=== PATIENT | female | born 1955 | race Caucasian/White ===

== ENCOUNTER 2016-06-19 10:01 | Outpatient (CLI) ==
[2016-02-05 18:12] VITALS: BMI 23.3
[2016-06-19 10:26] LABS: BASOPHILS # (AUTO) 0.1 K/uL (0-0.2); BASOPHILS % (AUTO) 0.5 % (0.0-3.0); EOSINOPHILS # (AUTO) 0.3 K/ul (0.0-0.7); EOSINOPHILS % (AUTO) 3.1 % (0.0-7.0); HEMATOCRIT 36.7 % (37.0-47.0); HEMOGLOBIN 11.5 g/dl (12.0-16.0); IMMATURE GRANULOCYTE % (AUTO) 0.7 % (0.0-5.0); LYMPHOCYTES # (AUTO) 2.8 K/uL (0.60-3.4); MEAN CORPUSCULAR HEMOGLOBIN 25.5 pg (27.0-31.0); MEAN CORPUSCULAR HGB CONC 31.3 (31.8-35.4); MEAN CORPUSCULAR VOLUME 81.4 fl (81.0-99.0); MONOCYTES # (AUTO) 0.9 K/uL (0.4-2.0); MONOCYTES % (AUTO) 7.9 (0-10); NEUTROPHILS # (AUTO) 6.8 K/ul (2.0-6.9); NEUTROPHILS % (AUTO) 61.8; PLATELET COUNT 254 10^3/uL (140-440); RED BLOOD COUNT 4.51 10^6/ul (4.20-5.40); WHITE BLOOD COUNT 10.94 K/ul (4.6-10.2)
[2016-06-19 10:56] LABS: ALBUMIN 3.7 g/dL (3.4-5.0); ALBUMIN/GLOBULIN RATIO 0.93; ANION GAP 13.6; BILIRUBIN,TOTAL 0.16 mg/dL (0.00-1.20); BUN/CREATININE RATIO 15.78; CALCIUM 9.2 mg/dL (8.2-10.2); CREATININE 0.95 mg/dL (0.60-1.30); POTASSIUM 3.6 mmol/L (3.5-5.10); TOTAL PROTEIN 7.7 g/dL (5.8-8.1)
--- NOTE | 2016-06-19 12:24 | CT ---
EXAM: CT Chest with and without contrast. HISTORY: Interstitial lung disease. COMPARISON: 07/28/2015, 05/22/2015. TECHNIQUE: Multiple axial images of the chest were obtained prior to and following intravenous admi nistration of 75 mL of Omnipaque 350, low osmolar. Images were reformatted in the sagittal and harinder nal planes. FINDINGS: Partially calcified mediastinal lymph nodes are present measuring up to 1.6 cm short axis in the pretracheal region on postcontrast axial image 19. Right hilar lymph nodes also partially c alcified measure up to 1.3 cm on axial image 22 with left hilar lymph nodes measuring up to 1.3 cm o n axial image 23. These lymph nodes are grossly stable. Heart size is normal. There is no pericar dial effusion. Honeycombing seen throughout both lungs in a peripheral distribution, although somewhat greater in t he upper lobes with sparing along the diaphragmatic surface. These findings are stable since previo us examination. Mild traction bronchiectasis is present. No significant ground-glass opacities betsy ntified. No pleural effusion or pneumothorax detected. Limited images of the upper abdomen demonstrate no acute abnormality. No significant osseous abnorm ality detected. IMPRESSION: Staple peripheral fibrosis with slight upper lung predominance and basilar distribution. Findings a re inconsistent with UIP.
== END 2016-06-19 10:02 | disposition home or self-care (01) ==
LOC: RAD 10:01
PROVIDERS: ATTEND Nurse Practitioner Family
DX: J84.9 Interstitial pulmonary disease, unspecified (principal); M25.531 Pain in right wrist
CPT/HCPCS: 36415; 80053; 85025

== ENCOUNTER 2016-07-17 12:32 | Outpatient (RCR) ==
[2016-02-05 18:12] VITALS: BMI 23.3
[2016-07-26 13:14] VITALS: BP 118/62
== END 2016-08-06 ==
LOC: PUL.REHAB 12:32
PROVIDERS: ATTEND Internal Medicine Pulmonary Disease
DX: J84.112 Idiopathic pulmonary fibrosis (principal)

== ENCOUNTER 2016-08-07 07:03 | Outpatient (RCR) ==
[2016-06-19 10:05] VITALS: BMI 23.3
[2016-08-26 13:08] VITALS: BP 124/76
== END 2016-09-06 ==
LOC: PUL.REHAB 07:03
PROVIDERS: ATTEND Internal Medicine Pulmonary Disease
DX: J84.112 Idiopathic pulmonary fibrosis (principal)

== ENCOUNTER 2016-08-29 06:10 | Emergency (ER) ==
[2016-08-29 06:19] VITALS: BP 137/78; TEMP 96.2; BMI 26.6
[2016-08-29] MEDS ORDERED: TORADOL IVP STA (06:31)
[2016-08-29] MEDS ORDERED: ZOFRAN 4 MG/2 ML IVP STA (06:32)
--- NOTE | 2016-08-29 06:37 | ED.PDOC ---
General Stated Complaint: Patient was awakened by rigth back pain at 2 am radiating to the right groin. with some vomiting x 2. pain is a crampy sharp getting worse. Time Seen by Physician: 06:35 Mode of Arrival: Wheelchair Information Source: Patient Exam Limitations: No limitations Nursing and Triage Documentation Reviewed and Agree: Yes <JUAN CARLOS BELLO - Last Filed: 08/29/16 07:06> <TEE WILDER JR - Last Filed: 09/05/16 20:04> ED Provider: Dr. TEE WILDER JR Chief Complaint: Back Pain Primary Care Provider: ROSMERY PERRY Musculoskeletal Complaint Exam - Back Pain Complaint/Exam Mechanism of Injury: Reports: No known trauma Onset/Duration: 2 AM Symptoms Are: Still present Timing: Constant Initial Severity: Moderate Current Severity: Severe Location: Reports: Radiating (right groin) Character: Reports: Dull, Aching, Throbbing, Spasmodic Aggravating: Reports: None Alleviating: Reports: None Associated Signs and Symptoms: Reports: Flank pain. Denies: Swelling, Redness, Bruising, Fever, Weakness, Numbness, Tingling, Abdominal pain, Bladder incontinence, Bowel incontinence, Weight loss, Pain with weight bearing Related History: Reports: Similar episode Focal Tenderness: No Paraspinal Muscle Tenderness: No Paraspinal Muscle Spasm: No Scoliosis: No Lordosis: No Kyphosis: No SLR Test: Right Negative, Left Negative Hip Motion Testing Pain: Right Negative, Left Negative Focal Weakness: Present: None Focal Sensory Loss: Present: None Gait: Present: Normal Back Picture: 1 - area of pain 2 - radiated pain <SHANNAMICHAELJUAN CARLOS - Last Filed: 08/29/16 07:06> Review of Systems - Review Of Systems Constitutional: Reports: No symptoms Eyes: Reports: No symptoms Ears, Nose, Mouth, Throat: Reports: No symptoms Respiratory: Reports: No symptoms Cardiac: Reports: No symptoms GI: Reports: Nausea, Vomiting : Denies: Dysuria, Discharge Musculoskeletal: Reports: Back pain Skin: Reports: No symptoms Neurological: Reports: Anxiety Endocrine: Reports: No symptoms Hematologic/Lymphatic: Reports: No symptoms All Other Systems: Reviewed and Negative <JUAN CARLOS BELLO - Last Filed: 08/29/16 07:06> Past Medical History - Past Medical History Previously Healthy: No Endocrine: Reports: None Cardiovascular: Reports: None Respiratory: Reports: Other (PULMONARY FIBROSIS) Hematological: Reports: None Gastrointestinal: Reports: GERD Genitourinary: Reports: None Neuro/Psych: Reports: Anxiety, Depression, Other (dizziness) Musculoskeletal: Reports: Other (old record lumbar spinal stenosis) Cancer: Reports: None Last Menstrual Period: PT HAS HAD A HYSTERECTOMY Other Pertinent Past Medical History: idiopathic pulmonary fibrosis, - Surgical History General Surgical History: Reports: Hysterectomy, Appendectomy, Tonsillectomy. Denies: Gastric Bypass (gastric surgery,8 inches of intestine removed for adhesions) - Family History Family History: Reports: None - Social History Smoking Status: Former smoker Hx Substance Use: No Alcohol Screening: None - Immunizations Tetanus Shot up to Date: Yes <JUAN CARLOS BELLO - Last Filed: 08/29/16 07:06> Physical Exam - Physical Exam Appearance: Ill-appearing Ill-appearing: Moderate Pain Distress: Severe Neck: Supple Respiratory: Airway patent, Breath sounds clear, Breath sounds equal, Respirations nonlabored Cardiovascular: RRR, Pulses normal, No rub, No murmur GI/: Soft, Nontender, Bowel sounds normal Musculoskeletal: Normal strength, ROM intact, No edema, No calf tenderness Skin: Warm, Dry, Normal color Neurological: Motor intact, Alert, Oriented Psychiatric: Anxious <JUAN CARLOS BELLO - Last Filed: 08/29/16 07:06> Critical Care Note - Critical Care Note Total Time (mins): 30 <JUAN CARLOS BELLO - Last Filed: 08/29/16 07:06> Course - Course Hematology/Chemistry: 08/29/16 06:53 08/29/16 06:53 <TEE WILDER JR - Last Filed: 09/05/16 20:04> - Course Orders, Labs, Meds: Lab Review 08/29/16 08/29/16 08/29/16 06:35 06:40 06:53 WBC 11.91 H RBC 4.81 Hgb 12.4 Hct 38.1 MCV 79.2 L MCH 25.8 L MCHC 32.5 RDW Coeff of Sil 16.3 H Plt Count 276 Immature Gran % (Auto) 1.1 Neut % (Auto) 73.9 Lymph % (Auto) 16.5 [place] % (Auto) 7.1 Eos % (Auto) 1.0 Baso % (Auto) 0.4 Immature Gran # (Auto) 0.1 Neut # 8.8 H Lymph # 2.0 [place] # 0.8 Eos # 0.1 Baso # 0.1 Sodium 139 Potassium 4.2 Chloride 105 Carbon Dioxide 23 Anion Gap 15.2 BUN 15 Creatinine 0.96 Estimated GFR (MDRD) 59.00 BUN/Creatinine Ratio 15.62 Glucose 108 Calcium 9.8 Total Bilirubin 0.23 AST 16 ALT 16 Alkaline Phosphatase 83 Total Protein 8.0 Albumin 3.8 Globulin 4.2 Albumin/Globulin Ratio 0.90 Urine Color Yellow Urine Clarity Clear Urine pH 5.5 Ur Specific Sunshine >=1.030 Urine Protein 1+ Urine Glucose (UA) Negative Urine Ketones Negative Urine Blood 2+ Urine Nitrite Negative Urine Bilirubin 1+ Urine Urobilinogen 0.2 Ur Leukocyte Esterase Negative Urine Microscopic RBC 0-2 Ur Squamous Epith Cells Not present Urine Opiates Screen Negative Ur Oxycodone Screen Negative Urine Methadone Screen Negative Ur Propoxyphene Screen Negative Acetaminophen < 3 L Ur Barbiturates Screen Negative U Tricyclic Antidepress Positive Ur Phencyclidine Scrn Negative Ur Amphetamine Screen Negative U Methamphetamines Scrn Negative U Benzodiazepines Scrn Positive Urine Cocaine Screen Negative U Cannabinoids Screen Negative Orders Category Date Time Status ED IV/MEDIPORT/POWERPORT .ONCE EMERGENCY 08/29/16 06:33 Active Strain Urine [ED STRAIN URINE] .ONCE EMERGENCY 08/29/16 08:04 Active ACETAMINOPHEN Stat LAB 08/29/16 06:35 Completed CBC W/ AUTO DIFF Stat LAB 08/29/16 06:53 Completed COMPREHENSIVE METABOLIC PANEL Stat LAB 08/29/16 06:53 Completed DRUG SCREEN, URINE, RAPID Stat LAB 08/29/16 06:35 Completed URINALYSIS C & S IF INDICATED Stat LAB 08/29/16 06:40 Completed 0.9 % Sodium Chloride [Saline Flush] MEDS 08/29/16 06:32 Discontinued 1 syr IVF PRN PRN Hydromorphone HCl [Dilaudid 1 mg/ml Syringe] MEDS 08/29/16 07:02 Discontinued 1 mg IVP ONCE STA Ketorolac Tromethamine [Toradol] MEDS 08/29/16 06:31 Discontinued 30 mg IVP ONCE STA Ondansetron HCl/Pf [Zofran 4 mg/2 ml] MEDS 08/29/16 06:32 Discontinued 4 mg IVP ONCE STA Sodium Chloride 0.9% [Sodium Chloride] 200 ml MEDS 08/29/16 07:[address] ABD/PEL WO RENAL STONE PROT Stat RADS 08/29/16 06:37 Completed Medications Discontinued Medications Generic Name Dose Route Start Last Admin Trade Name Freq PRN Reason Stop Dose Admin Hydromorphone HCl 1 mg 08/29/16 07:02 08/29/16 07:10 Dilaudid 1 Mg/Ml Syringe IVP 08/29/16 07:03 1 mg ONCE STA Administration Sodium Chloride 200 mls @ 1,000 mls/hr 08/29/16 07:13 Sodium Chloride IV 08/29/16 07:24 BOLUS STA Ketorolac Tromethamine 30 mg 08/29/16 06:31 08/29/16 06:44 Toradol IVP 08/29/16 06:32 30 mg ONCE STA Administration Ondansetron HCl 4 mg 08/29/16 06:32 08/29/16 06:44 Zofran 4 Mg/2 Ml IVP 08/29/16 06:33 4 mg ONCE STA Administration Sodium Chloride 1 syr 08/29/16 06:32 08/29/16 07:14 Saline Flush IVF 1 syr PRN PRN Administration To flush IV Vital Signs: Temp Pulse Resp BP Pulse Ox 08/29/16 06:11 96.2 F L 77 44 H 137/78 96 Departure <JUAN CARLOS BELLO - Last Filed: 08/29/16 07:06> - Departure Time of Disposition: 08:30 Pt referred to PMD for follow-up: Yes <TEE WILDER JR - Last Filed: 09/05/16 20:04> - Departure Disposition: HOME SELF-CARE Discharge Problem: Kidney calculus Instructions: Kidney Stones (ED) Condition: Stable Additional Instructions: increase fluids to 6 to 8 eight ounce cups of clear liquid daily 10 to 12 cups today avoid dehydration follow up with PMD recommend urology consult Toradol usually is effective for pain, may use [place] for pain not controlled(no refills) Flomax has been recommended for improvement of stone passage strain urine- take stone in for analysis 3mm stone should pass without intervention Prescriptions: Hydrocodone Bit/Acetaminophen [[place] 5-325] 1 - 2 tab PO Q6HR PRN #12 tablet PRN Reason: pain Ketorolac Tromethamine [Toradol] 10 mg PO QID PRN #20 tablet PRN Reason: PAIN Tamsulosin HCl [Flomax] 0.4 mg PO DAILY #30 cap.er.24h Allergies/Adverse Reactions: Allergies Penicillins Allergy (Severe, Verified 08/29/16 06:23) Anaphylaxis Home Medications: Ambulatory Orders Aspirin/Caffeine [Bc Powder Packet] 1 each PO PRN PRN 01/30/15 Omeprazole [Prilosec] 20 mg PO BID 09/06/15 Pirfenidone [Esbriet] 3 tab PO TID 09/06/15 Ondansetron HCl [Zofran Tab] 4 mg PO Q8H PRN #14 tablet 02/05/16 Hydrocodone Bit/Acetaminophen [[place] 5-325] 1 - 2 tab PO Q6HR PRN #12 tablet Ketorolac Tromethamine [Toradol] 10 mg PO QID PRN #20 tablet 08/29/16 Promethazine HCl [Phenergan Tab] 25 mg PO Q8H PRN 08/29/16 Tamsulosin HCl [Flomax] 0.4 mg PO DAILY #30 cap.er.24h 08/29/16
[2016-08-29 06:58] LABS: HEMATOCRIT 38.1 % (37.0-47.0); HEMOGLOBIN 12.4 g/dl (12.0-16.0); MEAN CORPUSCULAR HEMOGLOBIN 25.8 pg (27.0-31.0); MEAN CORPUSCULAR VOLUME 79.2 fl (81.0-99.0); RED BLOOD COUNT 4.81 10^6/ul (4.20-5.40); WHITE BLOOD COUNT 11.91 K/ul (4.6-10.2)
[2016-08-29 06:59] LABS: BASOPHILS # (AUTO) 0.1 K/uL (0-0.2); BASOPHILS % (AUTO) 0.4 % (0.0-3.0); EOSINOPHILS # (AUTO) 0.1 K/ul (0.0-0.7); IMMATURE GRANULOCYTE % (AUTO) 1.1 % (0.0-5.0); LYMPHOCYTES % (AUTO) 16.5 (10.0-50.0); MEAN CORPUSCULAR HGB CONC 32.5 (31.8-35.4); MONOCYTES # (AUTO) 0.8 K/uL (0.4-2.0); MONOCYTES % (AUTO) 7.1 (0-10); NEUTROPHILS # (AUTO) 8.8 K/ul (2.0-6.9); NEUTROPHILS % (AUTO) 73.9; PLATELET COUNT 276 10^3/uL (140-440)
[2016-08-29] MEDS ORDERED: DILAUDID 1 MG/ML SYRINGE IVP STA (07:02)
[2016-08-29 07:12] LABS: BILIRUBIN,URINE 1+ (NEGATIVE); KETONES,URINE Negative (NEGATIVE); LEUKOCYTE ESTERASE ,URINE Negative (NEGATIVE); NITRITE,URINE Negative (NEGATIVE); PH,URINE 5.5 (5-9); PROTEIN,URINE 1+ (NEGATIVE); URINE, BLOOD 2+ (NEGATIVE)
[2016-08-29] MEDS ORDERED: SODIUM CHLORIDE 200 ML IV STA (07:13)
[2016-08-29 07:17] LABS: ALBUMIN 3.8 g/dL (3.4-5.0); ALBUMIN/GLOBULIN RATIO 0.9; ANION GAP 15.2; BILIRUBIN,TOTAL 0.23 mg/dL (0.00-1.20); BUN/CREATININE RATIO 15.62; CALCIUM 9.8 mg/dL (8.2-10.2); CREATININE 0.96 mg/dL (0.60-1.30); POTASSIUM 4.2 mmol/L (3.5-5.10)
[2016-08-29 07:17] LABS: ADD URINE MICROSCOPIC YES
--- NOTE | 2016-08-29 07:18 | CT ---
Exam: CT of the abdomen and pelvis without contrast History: Back pain with radiation to the groin Technique: [address] of the abdomen and pelvis without intravascular contrast FINDINGS: Fibrotic changes of the lung bases. No significant liver abnormality. The adrenals, pancr eas and spleen are unremarkable. The stomach and hiatus are unremarkable. The gallbladder appears no rmal. Right kidney with mild hydronephrosis and hydroureter. There is a 3 mm calculus of the urete rovesicular junction. Mild periureteral stranding. The left kidney and collecting system appear no rmal. The appendix is not seen. Normal caliber bowel loops. Atherosclerotic calcification of the aorta without aneurysm. Prior hysterectomy suspected. Otherwise, pelvic genitourinary structures appear normal. Pelvic cynthia l loops are unremarkable. No inflammatory change in the pelvic fat. No acute abnormality of the abdo leonardo or pelvic skeleton. Impression: 1. Mild right hydronephrosis and hydroureter secondary to a 3 mm ureterovesicular junction calculus . 2. No acute findings of the abdomen or pelvis otherwise.
[2016-08-29 07:44] LABS: COCAIN SCREEN,URINE NEGATIVE (NEGATIVE)
== END 2016-08-29 08:35 | disposition home or self-care (01) ==
LOC: ED 06:10
DX: N20.0 Calculus of kidney (principal); J84.112 Idiopathic pulmonary fibrosis; Z79.899 Other long term (current) drug therapy
CPT/HCPCS: 36415; 74176; 80053; 80306; 80307; 81001; 85025; 96374; 96375; 99283

== ENCOUNTER 2016-09-07 07:00 | Outpatient (RCR) ==
[2016-09-22 17:17] VITALS: BMI 26.5
== END 2016-10-06 ==
LOC: PUL.REHAB 07:00
PROVIDERS: ATTEND Internal Medicine Pulmonary Disease
DX: J84.112 Idiopathic pulmonary fibrosis (principal)

== ENCOUNTER 2016-09-22 12:33 | Inpatient (IN) ==
[2016-09-22] MEDS ORDERED: ZOFRAN 4 MG/2 ML IVP STA (12:36)
[2016-09-22] MEDS ORDERED: MORPHINE 2 MG/ML SYRINGE IVP STA (12:36)
[2016-09-22] MEDS ORDERED: ALBUTEROL 0.083% NEB NEB STA (12:39)
--- NOTE | 2016-09-22 12:40 | ED.PDOC ---
General ED Provider: Dr. TEE WILDER JR Stated Complaint: 2 days of INCREASING SHORTNESS OF AIR, NOT EATING, HX OF IPF, LUNG TRANSPLANT BUT DECLINED productive cough yellow sputum[End]increased her oxygen to 3 liters 98.4 110 28 78% 121/76 RALES AND RHONCHI THRU OUT LUNG THOMASON [End] Time Seen by Physician: 12:36 Information Source: Patient, Family Exam Limitations: No limitations Primary Care Provider: ROSMERY PERRY Nursing and Triage Documentation Reviewed and Agree: No Review of Systems - Review Of Systems Constitutional: Reports: Weakness Ears, Nose, Mouth, Throat: Reports: No symptoms Respiratory: Reports: Short of air Cardiac: Reports: No symptoms GI: Reports: No symptoms : Reports: No symptoms Musculoskeletal: Reports: No symptoms Neurological: Reports: No symptoms Endocrine: Reports: No symptoms Hematologic/Lymphatic: Reports: No symptoms All Other Systems: Other Past Medical History - Past Medical History Previously Healthy: No Endocrine: Reports: None Cardiovascular: Reports: None Respiratory: Reports: Other (PULMONARY FIBROSIS-idiopathic) Hematological: Reports: None Gastrointestinal: Reports: GERD Genitourinary: Reports: None Neuro/Psych: Reports: Anxiety, Depression, Other (dizziness) Musculoskeletal: Reports: Other (old record lumbar spinal stenosis) Cancer: Reports: None Other Pertinent Past Medical History: idiopathic pulmonary fibrosis, chronic sinusitis - Surgical History General Surgical History: Reports: Hysterectomy, Appendectomy, Tonsillectomy. Denies: Gastric Bypass (gastric surgery,8 inches of intestine removed for adhesions) - Family History Family History: Reports: None - Social History Smoking Status: Former smoker Hx Substance Use: No Alcohol Screening: None Physical Exam - Physical Exam Appearance: Ill-appearing Ill-appearing: Moderate Pain Distress: Moderate Eyes: PATY, EOMI, Conjunctiva clear ENT: Ears normal, Nose normal, Oropharynx normal Neck: Supple Respiratory: Airway patent, Breath sounds diminished, Crackles, Rhonchi, Wheezes Cardiovascular: RRR, Pulses normal, No rub, No murmur GI/: Soft, Nontender, No masses, Bowel sounds normal, No Organomegaly Musculoskeletal: Normal strength, ROM intact, No edema, No calf tenderness Skin: Warm, Dry, Normal color Neurological: Sensation intact, Motor intact, Reflexes intact, Cranial nerves intact, Alert, Oriented Psychiatric: Affect appropriate, Mood appropriate Critical Care Note - Critical Care Note Total Time (mins): 0 Course - Course Hematology/Chemistry: 04/16/17 12:45 09/22/16 12:45 Orders, Labs, Meds: Lab Review 09/22/16 09/22/16 12:37 12:45 WBC 11.14 H RBC 4.28 Hgb 11.3 L Hct 35.1 L MCV 82.0 MCH 26.4 L MCHC 32.2 RDW Coeff of Sil 17.0 H Plt Count 271 Immature Gran % (Auto) 0.8 Neut % (Auto) 61.5 Lymph % (Auto) 23.1 [place] % (Auto) 11.8 H Eos % (Auto) 2.4 Baso % (Auto) 0.4 Immature Gran # (Auto) 0.1 Neut # 6.9 Lymph # 2.6 [place] # 1.3 Eos # 0.3 Baso # 0.1 Puncture Site Lbrach O2 Saturation 76.0 L ABG pH 7.442 ABG pCO2 45.1 H ABG pO2 39.0 L* ABG HCO3 30.7 H ABG Total CO2 32 H ABG Base Excess 7 H O2 Delivery Device Nc Oxygen Liter Flow 2.00 FiO2 % 28.0 Sodium 138 Potassium 3.5 Chloride 98 Carbon Dioxide 32 H Anion Gap 11.5 BUN 15 Creatinine 0.74 Estimated GFR (MDRD) 80.00 BUN/Creatinine Ratio 20.27 Glucose 96 Calcium 9.8 Total Bilirubin 0.33 AST 28 ALT 33 Alkaline Phosphatase 82 Total Creatine Kinase 29 Troponin I < 0.0100 B-Natriuretic Peptide 169 H Total Protein 7.3 Albumin 3.3 L Globulin 4.0 Albumin/Globulin Ratio 0.83 Orders Category Date Time Status ADMIT PATIENT [facility]PAT[facility]) ADMISSION 09/22/16 15: 40 Active ABG DRAW REQUEST Stat CARDIO 09/22/16 12:37 Completed EKG-(ED ONLY) Stat CARDIO 09/22/16 12:37 Completed EKG-(IP & OP ONLY) DAILY CARDIO 09/23/16 06:00 Ordered EKG-(IP & OP ONLY) DAILY CARDIO 09/24/16 06:00 Ordered EKG-(IP & OP ONLY) DAILY CARDIO 09/25/16 06:00 Ordered NEBULIZER TREATMENT Stat CARDIO 09/22/16 12:40 Completed OXYGEN Routine CARDIO 09/22/16 15:42 Active ACTIVITY .Early Mobilization for VTE Prevention CARE 09/22/16 15:40 Active INTAKE & OUTPUT Q8HR CARE 09/22/16 15:40 Active TELEMETRY MONITORING TELE CARE 09/22/16 15:41 Active VITAL SIGNS Q4HR CARE 09/22/16 15:40 Active CARDIAC DIET DIETARY 09/22/16 Dinner Ordered ED APPLY O2 .ONCE EMERGENCY 09/22/16 12:36 Active ED ANESTHESIA DIRECTOR APPLIED .ONCE EMERGENCY 09/22/16 12:36 Active ED IV/MEDIPORT/POWERPORT .ONCE EMERGENCY 09/22/16 12:36 Active ABG Stat LAB 09/22/16 12:37 Completed B-TYPE NATRIURETIC PEPTIDE Stat LAB 09/22/16 12:45 Completed BLOOD CULTURE Routine LAB 09/22/16 15:50 Received CBC W/ AUTO DIFF DAILY@0600 LAB 09/23/16 06:00 Ordered CBC W/ AUTO DIFF DAILY@0600 LAB 09/24/16 06:00 Ordered CBC W/ AUTO DIFF DAILY@0600 LAB 09/25/16 06:00 Ordered CBC W/ AUTO DIFF DAILY@0600 LAB 09/26/16 06:00 Ordered CBC W/ AUTO DIFF DAILY@0600 LAB 09/27/16 06:00 Ordered CBC W/ AUTO DIFF DAILY@0600 LAB 09/28/16 06:00 Ordered CBC W/ AUTO DIFF DAILY@0600 LAB 09/29/16 06:00 Ordered CBC W/ AUTO DIFF DAILY@0600 LAB 09/30/16 06:00 Ordered CBC W/ AUTO DIFF DAILY@0600 LAB 10/01/16 06:00 Ordered CBC W/ AUTO DIFF DAILY@0600 LAB 10/02/16 06:00 Ordered CBC W/ AUTO DIFF DAILY@0600 LAB 10/03/16 06:00 Ordered CBC W/ AUTO DIFF DAILY@0600 LAB 10/04/16 06:00 Ordered CBC W/ AUTO DIFF DAILY@0600 LAB 10/05/16 06:00 Ordered CBC W/ AUTO DIFF DAILY@0600 LAB 10/06/16 06:00 Ordered CBC W/ AUTO DIFF DAILY@0600 LAB 10/07/16 06:00 Ordered CBC W/ AUTO DIFF DAILY@0600 LAB 10/08/16 06:00 Ordered CBC W/ AUTO DIFF DAILY@0600 LAB 10/09/16 06:00 Ordered CBC W/ AUTO DIFF DAILY@0600 LAB 10/10/16 06:00 Ordered CBC W/ AUTO DIFF DAILY@0600 LAB 10/11/16 06:00 Ordered CBC W/ AUTO DIFF DAILY@0600 LAB 10/12/16 06:00 Ordered CBC W/ AUTO DIFF Stat LAB 09/22/16 12:45 Completed COMPREHENSIVE METABOLIC PANEL DAILY@0600 LAB 09/23/16 06:00 Ordered COMPREHENSIVE METABOLIC PANEL DAILY@0600 LAB 09/24/16 06:00 Ordered COMPREHENSIVE METABOLIC PANEL DAILY@0600 LAB 09/25/16 06:00 Ordered COMPREHENSIVE METABOLIC PANEL DAILY@0600 LAB 09/26/16 06:00 Ordered COMPREHENSIVE METABOLIC PANEL DAILY@0600 LAB 09/27/16 06:00 Ordered COMPREHENSIVE METABOLIC PANEL DAILY@0600 LAB 09/28/16 06:00 Ordered COMPREHENSIVE METABOLIC PANEL DAILY@0600 LAB 09/29/16 06:00 Ordered COMPREHENSIVE METABOLIC PANEL DAILY@0600 LAB 09/30/16 06:00 Ordered COMPREHENSIVE METABOLIC PANEL DAILY@0600 LAB 10/01/16 06:00 Ordered COMPREHENSIVE METABOLIC PANEL DAILY@0600 LAB 10/02/16 06:00 Ordered COMPREHENSIVE METABOLIC PANEL DAILY@0600 LAB 10/03/16 06:00 Ordered COMPREHENSIVE METABOLIC PANEL DAILY@0600 LAB 10/04/16 06:00 Ordered COMPREHENSIVE METABOLIC PANEL DAILY@0600 LAB 10/05/16 06:00 Ordered COMPREHENSIVE METABOLIC PANEL DAILY@0600 LAB 10/06/16 06:00 Ordered COMPREHENSIVE METABOLIC PANEL DAILY@0600 LAB 10/07/16 06:00 Ordered COMPREHENSIVE METABOLIC PANEL DAILY@0600 LAB 10/08/16 06:00 Ordered COMPREHENSIVE METABOLIC PANEL DAILY@0600 LAB 10/09/16 06:00 Ordered COMPREHENSIVE METABOLIC PANEL DAILY@0600 LAB 10/10/16 06:00 Ordered COMPREHENSIVE METABOLIC PANEL DAILY@0600 LAB 10/11/16 06:00 Ordered COMPREHENSIVE METABOLIC PANEL DAILY@0600 LAB 10/12/16 06:00 Ordered COMPREHENSIVE METABOLIC PANEL Stat LAB 09/22/16 12:45 Completed CREATINE KINASE Q8H LAB 09/22/16 21:45 Ordered CREATINE KINASE Q8H LAB 09/23/16 05:45 Ordered CREATINE KINASE Stat LAB 09/22/16 12:45 Completed TROPONIN I Q8H LAB 09/22/16 21:45 Ordered TROPONIN I Q8H LAB 09/23/16 05:45 Ordered TROPONIN I Stat LAB 09/22/16 12:45 Completed 0.9 % Sodium Chloride [Saline Flush] MEDS 04/16/17 12:36 Ordered 1 syr IVF PRN PRN Acetaminophen [Tylenol] MEDS 09/22/16 15:40 Ordered 650 mg PO Q4H PRN Albuterol Sulfate 0.083% Neb [Albuterol 0.083% Neb] MEDS 09/22/16 12:39 Discontinued 1 vial NEB ONCE STA Levofloxacin/D5w [Levaquin] 500 mg MEDS 09/23/16 09:00 Ordered Premix 100 ml D5w 1 bag IV DAILY Morphine Sulfate [Morphine 2 mg/ml Syringe] MEDS 09/22/16 12:36 Discontinued 2 mg IVP ONCE STA Ondansetron HCl/Pf [Zofran 4 mg/2 ml] MEDS 09/22/16 12:36 Discontinued 4 mg IVP ONCE STA RESUSCITATION STATUS Routine OTHERS 09/22/16 15:40 Ordered CHEST, 1V AP ONLY Stat RADS 09/22/16 12:37 Completed Medications Generic Name Dose Route Start Last Admin Trade Name Freq PRN Reason Stop Dose Admin Acetaminophen 650 mg 09/22/16 15:40 Tylenol PO Q4H PRN Mild Pain Acetaminophen/Hydrocodone Bitart 1 - 2 tab 09/22/16 15:45 [place] 5-325 PO 10/03/16 23:59 Q6HR PRN Severe Pain Albuterol Sulfate vial 09/22/16 16:00 Albuterol 0.083% Neb NEB ONCE CLAUDIA Budesonide/Formoterol Fumarate puff 09/22/16 21:00 Symbicort 80-4.5 Mcg Inhaler IH BID CLAUDIA Levofloxacin/Dextrose 500 mg/ 100 mls @ 100 mls/hr 09/23/16 09:00 Dextrose IV DAILY CLAUDIA Ketorolac Tromethamine 10 mg 09/22/16 15:45 Toradol PO QID PRN Severe Pain Meclizine HCl 25 mg 09/22/16 15:45 Antivert PO BID PRN Dizziness Non-Formulary Medication 40 mg 09/23/16 09:00 Citalopram Hydrobromide [Celexa] PO DAILY CLAUDIA Non-Formulary Medication 5 ml 09/22/16 15:45 Promethazine/Dextromethorphan [Promethazine-Dm Syrup] PO Q8HR CLAUDIA Non-Formulary Medication 3 tab 09/22/16 21:00 Pirfenidone [Esbriet] PO TID CLAUDIA Non-Formulary Medication 1 each 09/22/16 15:45 Nebulizer [Compact Compressor Nebulizer] MC DIRECTED CLAUDIA Non-Formulary Medication 1 each 09/22/16 15:45 Aspirin/Caffeine [Bc Powder Packet] PO PRN PRN headache Omeprazole 20 mg 09/22/16 16:00 Prilosec PO BID CLAUDIA Ondansetron HCl 4 mg 09/22/16 15:45 Zofran Tab PO Q8H PRN Nausea / Vomiting Promethazine HCl 25 mg 09/22/16 15:45 Phenergan Tab PO Q8H PRN Nausea / Vomiting Sodium Chloride 1 syr 09/22/16 12:36 Saline Flush IVF PRN PRN To flush IV Tamsulosin HCl 0.4 mg 09/23/16 09:00 Flomax PO DAILY CLAUDIA Discontinued Medications Generic Name Dose Route Start Last Admin Trade Name Freq PRN Reason Stop Dose Admin Albuterol Sulfate 1 vial 09/22/16 12:39 Albuterol 0.083% Neb NEB 09/22/16 12:40 ONCE STA Morphine Sulfate 2 mg 09/22/16 12:36 09/22/16 12:45 Morphine 2 Mg/Ml Syringe IVP 09/22/16 12:37 2 mg ONCE STA Administration Ondansetron HCl 4 mg 09/22/16 12:36 09/22/16 12:40 Zofran 4 Mg/2 Ml IVP 09/22/16 12:37 4 mg ONCE STA Administration Vital Signs: Temp Pulse Resp BP Pulse Ox 09/22/16 12:33 98.4 F 110 H 28 H 121/76 78 L Departure - Departure Time of Disposition: 16:14 Disposition: ADMITTED INPATIENT Discharge Problem: Respiratory compromise, Pulmonary fibrosis Condition: Fair Pt referred to PMD for follow-up: No (hospitalist) Allergies/Adverse Reactions: Allergies Penicillins Allergy (Severe, Verified 09/22/16 13:13) Anaphylaxis Home Medications: Ambulatory Orders Aspirin/Caffeine [Bc Powder Packet] 1 each PO PRN PRN 01/30/15 Omeprazole [Prilosec] 20 mg PO BID 09/06/15 Pirfenidone [Esbriet] 3 tab PO TID 09/06/15 Ondansetron HCl [Zofran Tab] 4 mg PO Q8H PRN #14 tablet 02/05/16 Hydrocodone Bit/Acetaminophen [[place] 5-325] 1 - 2 tab PO Q6HR PRN #12 tablet Ketorolac Tromethamine [Toradol] 10 mg PO QID PRN #20 tablet 08/29/16 Promethazine HCl [Phenergan Tab] 25 mg PO Q8H PRN 08/29/16 Tamsulosin HCl [Flomax] 0.4 mg PO DAILY #30 cap.er.24h 08/29/16
[2016-09-22 12:53] LABS: BASOPHILS # (AUTO) 0.1 K/uL (0-0.2); BASOPHILS % (AUTO) 0.4 % (0.0-3.0); EOSINOPHILS # (AUTO) 0.3 K/ul (0.0-0.7); EOSINOPHILS % (AUTO) 2.4 % (0.0-7.0); HEMATOCRIT 35.1 % (37.0-47.0); HEMOGLOBIN 11.3 g/dl (12.0-16.0); IMMATURE GRANULOCYTE % (AUTO) 0.8 % (0.0-5.0); LYMPHOCYTES # (AUTO) 2.6 K/uL (0.60-3.4); LYMPHOCYTES % (AUTO) 23.1 (10.0-50.0); MEAN CORPUSCULAR HEMOGLOBIN 26.4 pg (27.0-31.0); MEAN CORPUSCULAR HGB CONC 32.2 (31.8-35.4); MONOCYTES # (AUTO) 1.3 K/uL (0.4-2.0); MONOCYTES % (AUTO) 11.8 (0-10); NEUTROPHILS # (AUTO) 6.9 K/ul (2.0-6.9); NEUTROPHILS % (AUTO) 61.5; PLATELET COUNT 271 10^3/uL (140-440); RED BLOOD COUNT 4.28 10^6/ul (4.20-5.40); WHITE BLOOD COUNT 11.14 K/ul (4.6-10.2)
[2016-09-22 13:05] LABS: ABG BASE EXCESS 7 (-2.0-2.0); ABG PCO2 45.1 mmHg (35-45); ABG PH 7.442 (7.35-7.45)
[2016-09-22 13:06] LABS: ABG HCO3 30.7 (22.0-26.0); ABG TCO2 32 (22.0-28.0)
[2016-09-22 13:16] LABS: ALANINE AMINOTRANSFERASE 33 U/L (12-78); ALBUMIN 3.3 g/dL (3.4-5.0); ALBUMIN/GLOBULIN RATIO 0.83; ALKALINE PHOSPHATASE 82 U/L (53-141); ANION GAP 11.5; ASPARTATE AMINO TRANSFERASE 28 U/L (15-37); BILIRUBIN,TOTAL 0.33 mg/dL (0.00-1.20); BLOOD UREA NITROGEN 15 mg/dL (7-18); BUN/CREATININE RATIO 20.27; CALCIUM 9.8 mg/dL (8.2-10.2); CARBON DIOXIDE 32 mmol/L (23-31); CHLORIDE 98 mmol/L (98-107); CREATINE KINASE 29 U/L; CREATININE 0.74 mg/dL (0.60-1.30); GLUCOSE 96 mg/dL (82-115); POTASSIUM 3.5 mmol/L (3.5-5.10); SODIUM 138 mmol/L (136-145); TOTAL PROTEIN 7.3 g/dL (5.8-8.1)
--- NOTE | 2016-09-22 14:28 | DI ---
EXAM: Chest 1 view. HISTORY: Chest pain COMPARISON: 05/28/2016 FINDINGS: There is cardiomegaly with pulmonary venous congestion. Compared to the prior study ther e is increased interstitial density in the hilar areas and the lung bases superimposed on chronic pu lmonary fibrosis. Margins of the cardiac silhouette are obscured. Probable small right pleural effu [place]. Impression 1. Congestive heart failure with pulmonary venous congestion and minimal central pulmonary edema. 2. Chronic interstitial density consistent with pulmonary fibrosis. There is some asymmetric opaci ty centrally in the left lower lobe may represent some pulmonary edema and/or evolving pneumonia.
[2016-09-22] MEDS ORDERED: TYLENOL PO PRN (15:40)
[2016-09-22] MEDS ORDERED: ASPIRIN PO PRN (15:45)
[2016-09-22] MEDS ORDERED: CAFFEINE PO PRN (15:45)
[2016-09-22] MEDS ORDERED: [UNRECOGNIZED DRUG - OTHER] MC SCH (15:45)
[2016-09-22] MEDS ORDERED: ANTIVERT PO PRN (15:45)
[2016-09-22] MEDS ORDERED: ZOFRAN TAB PO PRN (15:45)
[2016-09-22] MEDS ORDERED: PHENERGAN TAB PO PRN (15:45)
[2016-09-22] MEDS ORDERED: TORADOL PO PRN (15:45)
[2016-09-22] MEDS ORDERED: ALBUTEROL 0.083% NEB NEB SCH (16:00)
[2016-09-22 17:17] VITALS: BMI 26.5
[2016-09-22] MEDS ORDERED: PRILOSEC ONE ×2 (18:39→19:55)
[2016-09-22] MEDS: PRILOSEC PO SCH ×2 (18:41→20:07)
[2016-09-22] MEDS: PROMETHAZINE PO SCH ×2 (18:46→21:47)
[2016-09-22] MEDS: DEXTROMETHORPHAN PO SCH ×2 (18:46→21:47)
[2016-09-22] MEDS ORDERED: PHENERGAN WITH CODEINE 6.25/10 MG/5 ML ONE (19:55)
[2016-09-22] MEDS ORDERED: PIRFENIDONE PO SCH (21:00)
[2016-09-22] MEDS: NORCO 5-325 PO PRN (21:11)
[2016-09-22] MEDS: SOLU-MEDROL 40 MG IVP SCH (21:17)
[2016-09-22 21:47] LABS: CREATINE KINASE 29 U/L
[2016-09-23] MEDS ORDERED: PHENERGAN WITH CODEINE 6.25/10 MG/5 ML ONE (04:57)
[2016-09-23] MEDS: PROMETHAZINE PO SCH (05:03)
[2016-09-23] MEDS: SOLU-MEDROL 40 MG IVP SCH ×3 (05:03→21:21)
[2016-09-23] MEDS: DEXTROMETHORPHAN PO SCH (05:03)
[2016-09-23 05:56] LABS: BASOPHILS % (AUTO) 0.3 % (0.0-3.0); EOSINOPHILS # (AUTO) 0.2 K/ul (0.0-0.7); EOSINOPHILS % (AUTO) 1.7 % (0.0-7.0); HEMATOCRIT 34.5 % (37.0-47.0); HEMOGLOBIN 10.9 g/dl (12.0-16.0); IMMATURE GRANULOCYTE % (AUTO) 0.8 % (0.0-5.0); LYMPHOCYTES # (AUTO) 2.3 K/uL (0.60-3.4); LYMPHOCYTES % (AUTO) 23.3 (10.0-50.0); MEAN CORPUSCULAR HGB CONC 31.6 (31.8-35.4); MEAN CORPUSCULAR VOLUME 82.1 fl (81.0-99.0); MONOCYTES % (AUTO) 9.8 (0-10); NEUTROPHILS # (AUTO) 6.2 K/ul (2.0-6.9); NEUTROPHILS % (AUTO) 64.1; PLATELET COUNT 277 10^3/uL (140-440); WHITE BLOOD COUNT 9.65 K/ul (4.6-10.2)
[2016-09-23 06:24] LABS: ALBUMIN 3.1 g/dL (3.4-5.0); ALBUMIN/GLOBULIN RATIO 0.78; ANION GAP 12.1; BILIRUBIN,TOTAL 0.31 mg/dL (0.00-1.20); BUN/CREATININE RATIO 18.3; CALCIUM 9.5 mg/dL (8.2-10.2); CREATININE 0.71 mg/dL (0.60-1.30); POTASSIUM 4.1 mmol/L (3.5-5.10); TOTAL PROTEIN 7.1 g/dL (5.8-8.1); TROPONIN I 0.01 ng/ml (0.0000-0.4000)
[2016-09-23] MEDS ORDERED: FLOMAX PO SCH (09:00)
[2016-09-23] MEDS ORDERED: NON-FORMULARY MEDICATION (Citalopram Hydrobromide [Celexa] 40 MG) PO SCH ×22 (09:00)
[2016-09-23] MEDS ORDERED: ROCEPHIN 1 GM in SODIUM CHLORIDE 50 ML IV SCH (09:00)
[2016-09-23] MEDS ORDERED: LEVAQUIN 500 MG in PREMIX 100 ML D5W 1 BAG IV SCH (09:00)
[2016-09-23] MEDS: PIRFENIDONE PO SCH ×3 (09:17→20:55)
[2016-09-23] MEDS: CELEXA PO SCH (09:17)
[2016-09-23] MEDS: SYMBICORT 80-4.5 MCG INHALER IH SCH ×3 (09:18→21:22)
[2016-09-23] MEDS: DUONEB NEB SCH ×3 (11:22→23:14)
[2016-09-23] MEDS: LEVAQUIN 500 MG in PREMIX 100 ML D5W 1 BAG IV SCH (11:30)
[2016-09-23] MEDS ORDERED: PROMETHAZINE PO SCH (13:00)
[2016-09-23] MEDS ORDERED: DEXTROMETHORPHAN PO SCH (13:00)
--- NOTE | 2016-09-23 13:07 | PCM.PROG ---
Attending Provider: ATTENDING PROVIDER: Dr. EVA DIOR DATE OF SERVICE: 09/23/16 SUBJECTIVE: This 61 year old WHITE/ F was hospitalized 09/22/16. The patient is admitted with COPD exacerbation and bronchitis. She also has idiopathic pulmonary fibrosis for which she sees Dr. Machado. She uses oxygen 2L at home. She was started on Rocephin and says she is feeling better than yesterday. REVIEW OF SYSTEMS: CONSTITUTIONAL: No fever, no chills. ENDOCRINE: No weight loss or weight gain. HEENT: No sinus drainage, no sore throat. CVS: No angina symptoms. No CHF symptoms. No palpitations. No atypical chest pain for CAD. No shortness of breath at rest. No PND, no orthopnea. RESPIRATORY: No cough, no hemoptysis. GI: No melena. No abdominal pain. No nausea, no vomiting. : No hematuria. No polyuria. SKIN: No rash. No wounds. MUSCULOSKELETAL: No pain. ANGULAR JS DEVELOPER: No blackout, no dizziness. No headache. No double vision. PSYCHIATRIC: Not anxious; no depression. No suicidal thoughts. No homicidal thoughts. PHYSICAL EXAMINATION: GENERAL: Lying in bed in no distress. VITAL SIGNS: Temperature 97.7 F, Pulse 70, Respiratory Rate 15, BP 121/74, Pulse Ox 91% HEENT: Normocephalic, atraumatic. Mucosa is dry, pallor positive. NECK: No JVP, no carotid bruit. No lymphadenopathy. CARDIAC: S1, S2, no S3. No murmur, gallop or regurgitation. LUNGS: Decreased basilar crackles and expiratory wheeze present. ABDOMEN: Soft, non-tender. Bowel sounds active. No rigidity, guarding or CVA tenderness. EXTREMITIES: No clubbing, cyanosis or edema. NEUROLOGIC: Awake, alert and oriented x3. LYMPHATIC: No palpable lymph nodes SKIN: Not dry. Intact. MUSCULOSKELETAL: No joint swelling. LAB REVIEW: 09/23/16 05:40 09/23/16 05:40 09/23/16 05:40: WBC 9.65, RBC 4.20, Hgb 10.9 L, Hct 34.5 L, MCV 82.1, MCH 26.0 L , MCHC 31.6 L, RDW Coeff of Sil 16.8 H, Plt Count 277, Immature Gran % (Auto) 0.8, Neut % (Auto) 64.1, Lymph % (Auto) 23.3, Sibley % (Auto) 9.8, Eos % (Auto) 1.7, Baso % (Auto) 0.3, Immature Gran # (Auto) 0.1, Neut # 6.2, Lymph # 2.3, Sibley # 1.0, Eos # 0.2, Baso # 0.0, Sodium 139, Potassium 4.1, Chloride 99, Carbon Dioxide 32 H, Anion Gap 12.1, BUN 13, Creatinine 0.71, Estimated GFR ( MDRD) 83.00, BUN/Creatinine Ratio 18.30, Glucose 116 H, Calcium 9.5, Total Bilirubin 0.31, AST 19, ALT 28, Alkaline Phosphatase 84, Total Creatine Kinase 26, Troponin I 0.0100, Total Protein 7.1, Albumin 3.1 L, Globulin 4.0, Albumin/ Globulin Ratio 0.78 09/22/16 21:20: Total Creatine Kinase 29, Troponin I < 0.0100 ASSESSMENT: 1. COPD exacerbation secondary to bronchitis 2. History of idiopathic pulmonary fibrosis 3. Hypertension 4. Dyslipidemia 5. GERD 6. Anxiety 7. Status post gastric bypass PLAN: 1. Duonebs q.6hr 2. Echocardiogram 3. Continue Solu-Medrol Plan and coordination of the patient's care discussed in the presence of Composite Technician and nurse. CONDITION: Stable SCRIBED BY: GIORGIO PENA Residential Aide scribed while in presence of service performed by Dr. EVA DIOR on 09/23/16 ([id number])
[2016-09-23] MEDS: PRILOSEC PO SCH (16:12)
[2016-09-23] MEDS: XANAX PO PRN (16:35)
[2016-09-24] MEDS: DUONEB NEB SCH ×4 (05:00→23:13)
[2016-09-24 05:15] LABS: BASOPHILS % (AUTO) 0.1 % (0.0-3.0); HEMATOCRIT 34.5 % (37.0-47.0); IMMATURE GRANULOCYTE % (AUTO) 0.8 % (0.0-5.0); LYMPHOCYTES # (AUTO) 1.4 K/uL (0.60-3.4); LYMPHOCYTES % (AUTO) 8.9 (10.0-50.0); MEAN CORPUSCULAR HEMOGLOBIN 26.2 pg (27.0-31.0); MEAN CORPUSCULAR HGB CONC 31.9 (31.8-35.4); MEAN CORPUSCULAR VOLUME 82.1 fl (81.0-99.0); MONOCYTES # (AUTO) 0.6 K/uL (0.4-2.0); NEUTROPHILS # (AUTO) 13.9 K/ul (2.0-6.9); NEUTROPHILS % (AUTO) 86.2; PLATELET COUNT 321 10^3/uL (140-440); WHITE BLOOD COUNT 16.15 K/ul (4.6-10.2)
[2016-09-24 05:37] LABS: ALBUMIN 3.2 g/dL (3.4-5.0); ALBUMIN/GLOBULIN RATIO 0.74; ANION GAP 16.5; BILIRUBIN,TOTAL 0.22 mg/dL (0.00-1.20); BUN/CREATININE RATIO 20.83; CALCIUM 9.9 mg/dL (8.2-10.2); CREATININE 0.72 mg/dL (0.60-1.30); POTASSIUM 4.5 mmol/L (3.5-5.10); TOTAL PROTEIN 7.5 g/dL (5.8-8.1)
[2016-09-24] MEDS: SOLU-MEDROL 40 MG IVP SCH ×3 (05:48→20:15)
[2016-09-24] MEDS: PRILOSEC PO SCH ×2 (05:49→17:26)
[2016-09-24] MEDS: XANAX PO PRN ×2 (07:34→20:15)
[2016-09-24] MEDS: NORCO 5-325 PO PRN ×2 (07:34→21:25)
[2016-09-24] MEDS: PIRFENIDONE PO SCH ×3 (08:41→17:26)
[2016-09-24] MEDS: LEVAQUIN 500 MG in PREMIX 100 ML D5W 1 BAG IV SCH (08:41)
[2016-09-24] MEDS: SYMBICORT 80-4.5 MCG INHALER IH SCH ×2 (08:41→20:14)
[2016-09-24] MEDS: CELEXA PO SCH (08:42)
--- NOTE | 2016-09-24 11:53 | DI ---
EXAM: Chest two view, frontal and lateral views. HISTORY: Shortness of air. Cough. COMPARISON: 09/22/2016. FINDINGS: Heart size is normal. Increased interstitial markings again seen throughout both lungs, stable from most recent radiograph, although increased from radiograph dated 05/28/2016. No pleural effusion or pneumothorax identified. Old right rib fracture noted. IMPRESSION: Stable appearance of the chest. Interstitial fibrosis is present although superimposed edema or pne umonia is suspected.
[2016-09-24] MEDS ORDERED: LASIX IVP STA (12:57)
[2016-09-24] MEDS ORDERED: CITRATE OF MAGNESIA PO STA ×2 (13:21→17:19)
--- NOTE | 2016-09-24 13:45 | HP ---
DATE OF SERVICE: 09/22/16 REASON FOR HOSPITALIZATION/HISTORY OF PRESENT ILLNESS: The patient is a 61 year old female who was brought to the emergency room with coughing, congestion, shortness of breath and had episode of the chest tightness. Was not able to get any phlegm so the patient was worried and so the patient was brought to the emergency room by the patient's sister. In the emergency room Dr. Tamez saw the patient. EKG normal, ABG showed the pH 7.442, pCO2 45.1 and pO2 39. BNP 169. Chest x-ray showed the pulmonary fibrosis with the pulmonary congestion. Otherwise the patient does go to the Dr. Machado, hybrid technologist and questionable inflammatory reactions in the chest x-ray. At that time the patient was admitted to the hospital for the COPD exacerbation, Hypoxemia and pulmonary fibrosis. REVIEW OF SYSTEMS: CONSTITUTIONAL: No night sweats. Weakness and tiredness. No fever or chills. HEENT: Eyes: No visual changes. No eye pain. No eye discharge. ENT: No runny nose. No epistaxis. No sinus pain. No sore throat. No odynophagia. No ear pain. No congestion. RESPIRATORY: Cough and congestion. No hemoptysis. CARDIOVASCULAR: No angina symptoms. No CHF symptoms. No atypical chest pain for CAD. No palpitations. Shortness of breath. GASTROINTESTINAL: No abdominal pain. No nausea or vomiting. No diarrhea or constipation. No hematemesis. No hematochezia. GENITOURINARY: No urgency. No frequency. No dysuria. No hematuria. No obstructive symptoms. No discharge. No pain. No significant abnormal bleeding. MUSCULOSKELETAL: No musculoskeletal pain. No joint swelling. No arthritis. NEUROLOGICAL: No headache. No neck pain. No syncope. No seizures. No dizziness. PSYCHIATRIC: Not anxious. No depression. No suicidal thoughts. No homicidal thoughts. SKIN: No rash. No lesions. No wounds. ENDOCRINE: No unexplained weight loss. No weight gain. HEMATOLOGIC/LYMPHATIC: No anemia. No purpura. No petechiae. No prolonged or excessive bleeding. No palpable lymph nodes. PERSONAL/FAMILY/SOCIAL HISTORY: The patient quit smoking one year ago. No alcohol and no drugs. Family history is significant for the COPD and heart problems. PAST MEDICAL/SURGICAL PROBLEMS: Pulmonary fibrosis GERD Lower back pain Osteoarthritis Hysterectomy MEDICATIONS: Aspirin Pirfenidone Prilosec Zofran Antivert Symbicort Nebulizer Albuterol Promethazine Celexa [place] Toradol Flomax Phenergan ALLERGIES: Penicillin PHYSICAL EXAMINATION: VITAL SIGNS: blood pressure 121/76, respiratory rate 28, heart rate 110, temperature 98.4 and saturation 78 on 2 liters. HEENT: Head normocephalic, atraumatic. Eyes: Extraocular muscles are intact. Pupils are equal, round and reactive to light and accommodation. Ears: No lesions. Nose appeared normal. Throat: No exudate or erythema. Mucosa dry. NECK: Supple. No JVD, no carotid bruit. No lymphadenopathy or thyromegaly. LUNGS: Decreased with basilar crackles and mild expiratory wheeze. Percussion note normal. Chest symmetrical. HEART: S1, S2, no S3. No murmurs. No cyanosis or clubbing. No ascites. Pulses: Dorsalis pedis and posterior tibial pulses +1 to +2 both sides. ABDOMEN: Soft. Nontender. Bowel sounds active. No CVA tenderness. No mass felt. EXTREMITIES: No edema. Full range of motion of all extremities, equal. NEUROLOGIC: No focal deficit. Cranial nerves II through XII are grossly intact. No headache, no double vision or headache. The patient is awake and alert. SKIN: Not dry. Intact. Turgor - normal. LYMPHATIC: No palpable lymph nodes/no lymphedema. MUSCULOSKELETAL: Normal joints with no swelling. Muscle tone is normal.. LABS: ABG pH 7.442, pCO2 45.1, pO2 39, WBC 11.14, hgb 11.3, hct 35.1, plt count 271, sodium 138, potassium 3.5, chloride 98, bicarb 32, BUN 15, creatinine 0.74 and BNP 169. ASSESSMENT: 1. COPD exacerbation secondary to the pneumonia and upper respiratory infection 2. History of idiopathic pulmonary fibrosis 3. DJD spine 4. Osteoarthritis PLAN: 1. Daily I&O's 2. DUO NEBS 3. Solu-Medrol Will see the patient in daily rounds TIME SPENT: More than 65 minutes. KAYLA
[2016-09-24] MEDS ORDERED: CELEXA PO SCH ×2 (17:00)
[2016-09-24] MEDS ORDERED: CITRATE OF MAGNESIA ONE (17:17)
[2016-09-25 04:42] LABS: BASOPHILS % (AUTO) 0.1 % (0.0-3.0); LYMPHOCYTES # (AUTO) 2.3 K/uL (0.60-3.4); LYMPHOCYTES % (AUTO) 12.2 (10.0-50.0); MEAN CORPUSCULAR HEMOGLOBIN 25.8 pg (27.0-31.0); MEAN CORPUSCULAR HGB CONC 31.4 (31.8-35.4); MEAN CORPUSCULAR VOLUME 82.2 fl (81.0-99.0); MONOCYTES % (AUTO) 5.2 (0-10); NEUTROPHILS # (AUTO) 15.1 K/ul (2.0-6.9); NEUTROPHILS % (AUTO) 81.5; PLATELET COUNT 347 10^3/uL (140-440); RED BLOOD COUNT 4.26 10^6/ul (4.20-5.40); WHITE BLOOD COUNT 18.48 K/ul (4.6-10.2)
[2016-09-25] MEDS: DUONEB NEB SCH ×4 (05:00→23:20)
[2016-09-25 05:03] LABS: ALBUMIN 3.3 g/dL (3.4-5.0); ALBUMIN/GLOBULIN RATIO 0.8; ANION GAP 13.2; BILIRUBIN,TOTAL 0.2 mg/dL (0.00-1.20); BUN/CREATININE RATIO 27.77; CREATININE 0.72 mg/dL (0.60-1.30); POTASSIUM 5.2 mmol/L (3.5-5.10); TOTAL PROTEIN 7.4 g/dL (5.8-8.1)
[2016-09-25] MEDS ORDERED: DILAUDID 1 MG/ML SYRINGE ONE (05:22)
[2016-09-25] MEDS ORDERED: DILAUDID 1 MG/ML SYRINGE IVP STA (05:26)
[2016-09-25] MEDS: PRILOSEC PO SCH ×2 (05:39→17:06)
[2016-09-25] MEDS: XANAX PO PRN ×3 (05:40→20:22)
[2016-09-25] MEDS: SOLU-MEDROL 40 MG IVP SCH ×3 (05:40→20:19)
[2016-09-25 06:07] LABS: CREATINE KINASE 19 U/L
[2016-09-25] MEDS ORDERED: CITRATE OF MAGNESIA PO STA (07:57)
[2016-09-25] MEDS: PIRFENIDONE PO SCH ×3 (08:07→17:08)
[2016-09-25] MEDS: SYMBICORT 80-4.5 MCG INHALER IH SCH ×2 (08:08→20:19)
[2016-09-25] MEDS: LEVAQUIN 500 MG in PREMIX 100 ML D5W 1 BAG IV SCH (08:09)
--- NOTE | 2016-09-25 10:01 | ECHO2D ---
Date of Exam: 09/24/16 Ordering Physician: HOSPITALIST--EVA DIOR Reason for Echo: CHF, PULMONARY VENOUS CONGESTION, PULMONARY FIBROSIS M-Mode Normal Adult Results LV Dimensions Normal Adult Results AoV Opening excursions >1.6 >1.6 LVEDD-base- 3.5-5.8 5.1 Ao root dimensions 2.0-3.7 3.8 LVESD-base- 3.1-4.6 L. Atrium dimensions 1.9-3.8 4.1 Post. Wall thickness 0.8-1.1 1.1 IV septum (thickness) 0.7-1.2 1.2 Post. Wall excursion 0.72-1.3 NORMAL Septal motion NORMAL Systolic motion R. Ventricular cavity 1.5-2.0 3.0 LVEF 60% 59% Paradoxical septal wall motion NORMAL 2-D : 2-D M Mode Echocardiogram was performed using apical four chamber and left parasternal long and short axis views. Mitral, tricuspid and aortic valves appear to be normal. Contractility of the left ventricle seems to be normal, so is the cavity size. Left atrial cavity size and aortic root appear to be normal. There is no pericardial effusion. There is no thrombus noted in the left ventricular or left aortic cavity. No mitral valve prolapse noted. M-MODE: MV: NORMAL AV: NORMAL TV: NORMAL PV: CHAMBER SIZE: ENLARGED LEFT ATRIAL CAVITY AND RIGHT VENTRICLE CAVITY WALL MOTION: NORMAL PERICARDIUM: NORMAL INTERPRETATION: 1. BORDERLINE LEFT VENTRICULAR HYPERTROPHY WITH ENLARGED LEFT ATRIAL CAVITY 2. ENLARGED RIGHT VENTRICLE CAVITY 3. NORMAL LEFT VENTRICULAR CONTRACTILITY 4. NORMAL VALVES MTDD
[2016-09-25] MEDS: DILAUDID 1 MG/ML SYRINGE IVP PRN (12:47)
--- NOTE | 2016-09-25 13:05 | CT ---
EXAM: CT chest without contrast. HISTORY: Decreased oxygen saturation. Interstitial fibrosis. COMPARISON: 06/19/2016. TECHNIQUE: Multiple axial images of the chest were obtained without intravenous contrast. Images w ere reformatted in the sagittal and coronal planes. FINDINGS: Honeycombing with traction bronchiectasis again noted in a peripheral distribution with s omewhat upper lung predominance and cyst bearing of the diaphragm. Ground-glass opacities also pres ent throughout both lungs which are new. No pleural effusion or pneumothorax identified. Partially calcified mediastinal and hilar lymph nodes are stable. Heart size is normal. No pericardial effu quinton identified. Atherosclerotic calcifications are present. No acute abnormality identified in the upper abdomen. Osseous structures are intact. IMPRESSION: 1. New bilateral ground-glass opacities which could represent pneumonia or edema. 2. Stable interstitial fibrosis.
[2016-09-25 13:39] LABS: CREATINE KINASE 21 U/L; MYOGLOBIN 16 ng/ml
--- NOTE | 2016-09-25 15:35 | CT ---
EXAM: CT Angiogram Chest. HISTORY: Chest pain. Shortness of air. COMPARISON: Noncontrast CT earlier the same day. TECHNIQUE: Multiple axial images of the chest were obtained following intravenous administration of 125 mL of Omnipaque 350, low osmolar. Images were reformatted in the sagittal and coronal plane. 3-D and maximum intensity projection reformatted images were created on an independent workstation. FINDINGS: Heart is enlarged. No pericardial effusion identified. Atherosclerotic calcifications a re present. Partially calcified mediastinal and hilar lymph nodes are stable.. No pulmonary arteri al filling defects are seen. Honeycombing with interstitial thickening and traction bronchiectasis in a peripheral distribution noted, greater in the upper lungs. Diffuse bilateral ground-glass opac ities again noted. No pleural effusion or pneumothorax identified. No acute abnormality identified in the upper abdomen. No acute osseous abnormality detected. IMPRESSION: 1. No evidence for pulmonary embolus. 2. Redemonstration of diffuse bilateral ground-glass opacities most likely representing pneumonia o r edema. 3. Stable interstitial fibrosis.
--- NOTE | 2016-09-25 15:48 | US ---
EXAM: Ultrasound venous Doppler bilateral lower extremity HISTORY: Swelling COMPARISON: None TECHNIQUE: Venous duplex ultrasound of the right and left lower extremity was performed using color , lr-scale, and Doppler flow imaging. FINDINGS: There is normal color flow and lr scale appearance of the right and left common femoral , greater saphenous, profunda femoral, femoral, popliteal, peroneal, posterior tibial, and anterior tibial veins without evidence of intraluminal thrombus. Compression and augmentation is normal. No reflux is identified. IMPRESSION: No right or left lower extremity deep venous thrombosis.
[2016-09-25] MEDS: LEVAQUIN 750 MG in PREMIX 150 ML D5W 1 BAG IV SCH (17:06)
[2016-09-25] MEDS: NORCO 5-325 PO PRN (20:22)
[2016-09-26] MEDS: SOLU-MEDROL 40 MG IVP SCH ×3 (04:32→20:56)
[2016-09-26 04:53] LABS: BASOPHILS % (AUTO) 0.2 % (0.0-3.0); HEMATOCRIT 34.4 % (37.0-47.0); HEMOGLOBIN 10.8 g/dl (12.0-16.0); IMMATURE GRANULOCYTE % (AUTO) 2.1 % (0.0-5.0); LYMPHOCYTES # (AUTO) 1.9 K/uL (0.60-3.4); LYMPHOCYTES % (AUTO) 11.4 (10.0-50.0); MEAN CORPUSCULAR HEMOGLOBIN 25.7 pg (27.0-31.0); MEAN CORPUSCULAR HGB CONC 31.4 (31.8-35.4); MEAN CORPUSCULAR VOLUME 81.9 fl (81.0-99.0); MONOCYTES # (AUTO) 0.8 K/uL (0.4-2.0); MONOCYTES % (AUTO) 5.1 (0-10); NEUTROPHILS # (AUTO) 13.5 K/ul (2.0-6.9); NEUTROPHILS % (AUTO) 81.2; PLATELET COUNT 350 10^3/uL (140-440); WHITE BLOOD COUNT 16.57 K/ul (4.6-10.2)
[2016-09-26] MEDS: DUONEB NEB SCH ×4 (05:00→22:40)
[2016-09-26 05:14] LABS: ALBUMIN 3.3 g/dL (3.4-5.0); ALBUMIN/GLOBULIN RATIO 0.85; ANION GAP 14.7; BILIRUBIN,TOTAL 0.19 mg/dL (0.00-1.20); BUN/CREATININE RATIO 26.02; CREATININE 0.73 mg/dL (0.60-1.30); POTASSIUM 4.7 mmol/L (3.5-5.10); TOTAL PROTEIN 7.2 g/dL (5.8-8.1)
[2016-09-26] MEDS: PRILOSEC PO SCH ×2 (05:48→17:48)
--- NOTE | 2016-09-26 08:37 | PN ---
DATE OF VISIT: 09/24/16 Ashok Moreau did call me with regards to this patient. He would like me to follow the patient since he is going out of town. He told me that he was trying to discharge her, but he is not able to because of the continued problems. He did tell me that this patient had pulmonary fibrosis. I did see the patient in the evening of 09/24/2016. The patient is alert and responsive and cheerful. She has nasal oxygen at 5 liters per minute. She does know me and I did know her, but had not seen her for several years. She began having problems Friday, not feeling well and Friday began to cough. The increasing shortness of breath was worse on Friday prompting the visit to the emergency room and subsequent admission. This patient was diagnosed to have interstitial pulmonary fibrosis about a year and a half ago and was seen by Dr. Machado, a lacquer shader in [place]. She was then referred to [facility] and had a workup for possible transplantation. The patient did not go back for the further studies prior to transplantation consisting of cardiac catheterization, plus other arrangement to be made. Her sister, Ilene, is the POA. The patient is not cyanotic. LUNGS: The lungs have Velcro type rales on both posterior chest sloan. No wheezing. There are also rales on the anterior chest, but less than the posterior. HEART: Audible with good tones and regular. ABDOMEN: Nontender. The chest x-ray that was done on admission shows findings compatible with congestive heart failure with pulmonary venous congestion or minimal center pulmonary edema. Chronic interstitial density consistent with pulmonary fibrosis. This was done 09/22/2016. The patient was given Morphine in the emergency room 2 mg IV, plus Zofran 4 mg and Albuterol nebulizer. ASSESSMENT: 1. ACUTE EXACERBATION OF INTERSTITIAL PULMONARY FIBROSIS 2. CONGESTIVE HEART FAILURE MTDD
[2016-09-26] MEDS: PIRFENIDONE PO SCH ×3 (08:55→17:48)
[2016-09-26] MEDS: LEVAQUIN 750 MG in PREMIX 150 ML D5W 1 BAG IV SCH (08:55)
[2016-09-26] MEDS: SYMBICORT 80-4.5 MCG INHALER IH SCH ×2 (08:55→20:56)
--- NOTE | 2016-09-26 09:05 | PN ---
DATE OF VISIT: 09/25/2016 The patient this morning had chest pain, anteriorly and the EKG showed no acute changes and the cardiac enzymes were normal. She was seen by Dr. Amezcua on consult during this hospitalization and I did mention that to Dr. Amezcua when saw him with regards to the chest pain. Acute exacerbation of interstitial pulmonary fibrosis may also come from blood clots into the lung or infectious process. The patient's Procalcitonin was normal and the D-Dimer was beyond 500. The previous CT showed some new bilateral ground glass opacities, which could represent pneumonia or edema. CT with contrast showed no evidence of pulmonary embolus and redemonstration of the bilateral ground glass opacities most likely representing pneumonia or edema. Doppler studies were negative for any venous thrombosis. The patient's CBC today showed increasing WBC 18,480 and this may be due to steroid injection that she is receiving every 8 hours. WBC on admission was only 11,140. Chemistry today showed increasing potassium at 5.2, reason undetermined. E GFR is 82. Blood sugar 135 and BNP is now 70, normal. I did call Dr. Machado, the engineer design and construction who saw her previously and discussed the case. I did inform him about the findings. He also asked about what medication she is taking in particular the antibiotic and I told him that it is Levaquin at 500 and he advised to increase this to 750. He also asked about steroids and I did tell him that she is getting steroids on board. He mentioned other antibiotics, such as Zosyn to be added to the regimen. For now , however, I would leave without any additional antibiotics, except increasing the dose. He also mentioned that the patient did not qualify for a transfer because of the Hepatitis C. I reviewed the records and I could not see any so I asked Pebbles Reyna to ask the patient if she indeed had Hepatitis C. She told me that it was a false negative and I did also hear that directly from her in the course of my rounds this evening. She told me, as well as her sister, Ilene that the Hepatitis C was judged as false negative and was tested twice in [place]. Dr. Machado told me that he will see her at the office and will try to make an arrangement for her to see him either this coming Friday or Friday. The patient's prognosis for survival in the short term is poor. I do believe that this patient probably should be including in the list of possible transplant candidates. It would be the only way out for her. She still has the Velcro rales in both lung sloan posteriorly. PROGNOSIS: Grave. MTDD
[2016-09-26] MEDS: DILAUDID 1 MG/ML SYRINGE IVP PRN ×3 (10:28→21:02)
[2016-09-26] MEDS: XANAX PO PRN (17:07)
[2016-09-26 17:50] LABS: CREATINE KINASE 19 U/L; MYOGLOBIN 20 ng/ml
[2016-09-27] MEDS: DUONEB NEB SCH ×4 (05:12→22:56)
[2016-09-27] MEDS: PRILOSEC PO SCH ×2 (05:33→16:52)
[2016-09-27] MEDS: SOLU-MEDROL 40 MG IVP SCH ×3 (05:33→20:54)
[2016-09-27 05:48] LABS: BASOPHILS % (AUTO) 0.2 % (0.0-3.0); HEMOGLOBIN 10.9 g/dl (12.0-16.0); IMMATURE GRANULOCYTE % (AUTO) 4.6 % (0.0-5.0); LYMPHOCYTES # (AUTO) 2.2 K/uL (0.60-3.4); LYMPHOCYTES % (AUTO) 12.6 (10.0-50.0); MEAN CORPUSCULAR HEMOGLOBIN 25.5 pg (27.0-31.0); MEAN CORPUSCULAR HGB CONC 31.1 (31.8-35.4); MONOCYTES # (AUTO) 1.1 K/uL (0.4-2.0); MONOCYTES % (AUTO) 6.5 (0-10); NEUTROPHILS # (AUTO) 13.2 K/ul (2.0-6.9); NEUTROPHILS % (AUTO) 76.1; PLATELET COUNT 364 10^3/uL (140-440); RED BLOOD COUNT 4.27 10^6/ul (4.20-5.40); WHITE BLOOD COUNT 17.34 K/ul (4.6-10.2)
[2016-09-27 06:04] LABS: ALBUMIN 3.4 g/dL (3.4-5.0); ALBUMIN/GLOBULIN RATIO 0.89; ANION GAP 15.4; BILIRUBIN,TOTAL 0.19 mg/dL (0.00-1.20); BUN/CREATININE RATIO 31.08; CALCIUM 9.8 mg/dL (8.2-10.2); CREATININE 0.74 mg/dL (0.60-1.30); POTASSIUM 4.4 mmol/L (3.5-5.10); TOTAL PROTEIN 7.2 g/dL (5.8-8.1)
[2016-09-27] MEDS: SYMBICORT 80-4.5 MCG INHALER IH SCH ×2 (08:00→20:54)
[2016-09-27] MEDS: LEVAQUIN 750 MG in PREMIX 150 ML D5W 1 BAG IV SCH (08:00)
[2016-09-27] MEDS: PIRFENIDONE PO SCH ×3 (08:00→16:52)
[2016-09-27] MEDS: XANAX PO PRN (08:06)
[2016-09-27] MEDS: DILAUDID 1 MG/ML SYRINGE IVP PRN ×2 (08:16→14:23)
[2016-09-27] MEDS ORDERED: DECADRON 4 MG/ML SDV IM STA (14:53)
[2016-09-27 15:17] LABS: CREATINE KINASE 24 U/L; MYOGLOBIN 24 ng/ml
[2016-09-27] MEDS: TORADOL IVP SCH ×2 (15:46→20:55)
[2016-09-27] MEDS: CARDIZEM PO SCH (20:53)
[2016-09-28] MEDS: DUONEB NEB SCH ×4 (05:08→22:50)
[2016-09-28] MEDS: SOLU-MEDROL 40 MG IVP SCH ×2 (05:16→13:16)
[2016-09-28] MEDS: PRILOSEC PO SCH ×2 (05:48→17:35)
[2016-09-28 06:50] LABS: BASOPHILS % (AUTO) 0.2 % (0.0-3.0); HEMATOCRIT 34.5 % (37.0-47.0); HEMOGLOBIN 10.9 g/dl (12.0-16.0); IMMATURE GRANULOCYTE % (AUTO) 5.9 % (0.0-5.0); LYMPHOCYTES # (AUTO) 1.7 K/uL (0.60-3.4); LYMPHOCYTES % (AUTO) 10.5 (10.0-50.0); MEAN CORPUSCULAR HEMOGLOBIN 25.7 pg (27.0-31.0); MEAN CORPUSCULAR HGB CONC 31.6 (31.8-35.4); MEAN CORPUSCULAR VOLUME 81.4 fl (81.0-99.0); MONOCYTES # (AUTO) 1.1 K/uL (0.4-2.0); MONOCYTES % (AUTO) 6.8 (0-10); NEUTROPHILS # (AUTO) 12.3 K/ul (2.0-6.9); NEUTROPHILS % (AUTO) 76.6; PLATELET COUNT 348 10^3/uL (140-440); RED BLOOD COUNT 4.24 10^6/ul (4.20-5.40)
[2016-09-28 07:42] LABS: ALBUMIN 3.2 g/dL (3.4-5.0); ALBUMIN/GLOBULIN RATIO 0.86; ANION GAP 17.7; BILIRUBIN,TOTAL 0.21 mg/dL (0.00-1.20); BUN/CREATININE RATIO 35.13; CALCIUM 9.7 mg/dL (8.2-10.2); CHOL/HDL RATIO 3.1 (4.5-5.5); CREATININE 0.74 mg/dL (0.60-1.30); POTASSIUM 4.7 mmol/L (3.5-5.10); TOTAL PROTEIN 6.9 g/dL (5.8-8.1)
[2016-09-28 07:48] LABS: WHITE BLOOD COUNT 16.11 K/ul (4.6-10.2)
[2016-09-28] MEDS: LEVAQUIN 750 MG in PREMIX 150 ML D5W 1 BAG IV SCH (08:45)
[2016-09-28] MEDS: SYMBICORT 80-4.5 MCG INHALER IH SCH ×2 (08:45→20:36)
[2016-09-28] MEDS: PIRFENIDONE PO SCH ×3 (08:45→17:35)
[2016-09-28] MEDS: CARDIZEM PO SCH ×2 (08:46→20:36)
[2016-09-28] MEDS: TORADOL IVP SCH (08:46)
[2016-09-28] MEDS: XANAX PO PRN ×2 (08:52→17:36)
[2016-09-28] MEDS: NORCO 5-325 PO PRN (13:17)
[2016-09-29] MEDS: DILAUDID 1 MG/ML SYRINGE IVP PRN ×3 (00:09→16:19)
[2016-09-29] MEDS: DUONEB NEB SCH ×4 (05:35→22:48)
[2016-09-29] MEDS: PRILOSEC PO SCH ×2 (05:39→17:14)
[2016-09-29 07:35] LABS: HEMATOCRIT 34.2 % (37.0-47.0); HEMOGLOBIN 10.8 g/dl (12.0-16.0); MEAN CORPUSCULAR HEMOGLOBIN 25.5 pg (27.0-31.0); MEAN CORPUSCULAR HGB CONC 31.6 (31.8-35.4); MEAN CORPUSCULAR VOLUME 80.9 fl (81.0-99.0); PLATELET COUNT 368 10^3/uL (140-440); RED BLOOD COUNT 4.23 10^6/ul (4.20-5.40)
[2016-09-29 07:53] LABS: ALBUMIN 3.2 g/dL (3.4-5.0); ANION GAP 15.1; BILIRUBIN,TOTAL 0.21 mg/dL (0.00-1.20); BUN/CREATININE RATIO 28.57; CALCIUM 9.3 mg/dL (8.2-10.2); CREATININE 0.77 mg/dL (0.60-1.30); POTASSIUM 4.1 mmol/L (3.5-5.10); TOTAL PROTEIN 6.4 g/dL (5.8-8.1)
[2016-09-29 07:54] LABS: WHITE BLOOD COUNT 21.15 K/ul (4.6-10.2)
[2016-09-29 07:55] LABS: ANISOCYTOSIS NOT PRESENT (NOT PRESENT)
[2016-09-29] MEDS: PIRFENIDONE PO SCH ×3 (08:45→17:14)
[2016-09-29] MEDS: SYMBICORT 80-4.5 MCG INHALER IH SCH ×2 (09:17→20:05)
[2016-09-29] MEDS: XANAX PO PRN ×2 (09:17→17:20)
[2016-09-29] MEDS: CARDIZEM PO SCH ×2 (09:18→20:05)
[2016-09-29] MEDS: LEVAQUIN 750 MG in PREMIX 150 ML D5W 1 BAG IV SCH (09:18)
[2016-09-30] MEDS: DUONEB NEB SCH ×3 (05:13→17:10)
[2016-09-30] MEDS: PRILOSEC PO SCH ×2 (05:35→17:21)
[2016-09-30 06:05] LABS: HEMATOCRIT 34.3 % (37.0-47.0); HEMOGLOBIN 10.7 g/dl (12.0-16.0); MEAN CORPUSCULAR HEMOGLOBIN 25.4 pg (27.0-31.0); MEAN CORPUSCULAR HGB CONC 31.2 (31.8-35.4); MEAN CORPUSCULAR VOLUME 81.3 fl (81.0-99.0); PLATELET COUNT 352 10^3/uL (140-440); RED BLOOD COUNT 4.22 10^6/ul (4.20-5.40); WHITE BLOOD COUNT 16.46 K/ul (4.6-10.2)
[2016-09-30 06:12] LABS: ANISOCYTOSIS NOT PRESENT (NOT PRESENT)
[2016-09-30 06:25] LABS: ALBUMIN/GLOBULIN RATIO 0.97; ANION GAP 13.9; BILIRUBIN,TOTAL 0.16 mg/dL (0.00-1.20); BUN/CREATININE RATIO 30.37; CREATININE 0.79 mg/dL (0.60-1.30); POTASSIUM 3.9 mmol/L (3.5-5.10); TOTAL PROTEIN 6.1 g/dL (5.8-8.1)
[2016-09-30] MEDS ORDERED: DOBUTAMINE 250 ML IV ONE (08:12)
[2016-09-30] MEDS ORDERED: ATROPINE SULFATE PFS ONE (08:12)
[2016-09-30] MEDS: XANAX PO PRN (08:14)
--- NOTE | 2016-09-30 09:11 | CONS ---
DATE OF CONSULTATION: 09/27/16 REASON FOR CONSULTATION: Chest pain. HISTORY OF PRESENT ILLNESS: 61-year-old white female was hospitalized with pulmonary fibrosis, the possibility of pneumonia. The patient has been treated with antibiotics and steroids. The patient has idiopathic fibrosis, several years. The patient has been referred to [facility] for lung transplant and she has been worked up. The patient has a followup and possibility of cardiac catheterization on October. The patient's chest pain is center of the chest going through to the back and to the neck. It is nonexertional. Prior to this hospitalization, the patient did not have any chest pain. The chest pain started the morning of consultation, mainly because of anxiety. The patient is nonsmoker. No known coronary artery disease risk factors according to her with normal lipid profile. According to the patient, no history of diabetes mellitus. The patient is also followed by pulmonary physician, Dr. Machado. REVIEW OF SYSTEMS: CONSTITUTIONAL: No night sweats. No fatigue, malaise, lethargy. No fever or chills. HEENT: Eyes: No visual changes. No eye pain. No eye discharge. ENT: No runny nose. No epistaxis. No sinus pain. No sore throat. No odynophagia. No ear pain. No congestion. RESPIRATORY: No cough, no congestion. No hemoptysis. CARDIOVASCULAR: Chest pain in the center of the chest going through to the back , both neck, jaw areas. No sweating. No angina symptoms. No CHF symptoms. No palpitations. Shortness of breath on minimal exertion. Shortness of breath is exertional for a number of years. During that time the patient's rhythm strip had no changed and no ST-T wave changes were noted. GASTROINTESTINAL: No abdominal pain. No nausea or vomiting. No diarrhea or constipation. No hematemesis. No hematochezia. GENITOURINARY: No urgency. No frequency. No dysuria. No hematuria. No obstructive symptoms. No discharge. No pain. No significant abnormal bleeding. MUSCULOSKELETAL: No musculoskeletal pain. No joint swelling. NEUROLOGICAL: No headache. No neck pain. No syncope. No seizures. No dizziness. PSYCHIATRIC: Not anxious. No depression. No suicidal thoughts. No homicidal thoughts. SKIN: No rash. No lesions. No wounds. ENDOCRINE: No unexplained weight loss. No weight gain. HEMATOLOGIC/LYMPHATIC: No anemia. No purpura. No petechiae. No prolonged or excessive bleeding. No palpable lymph nodes. MEDICATIONS: 1. Aspirin one a day 2. Omeprazole 20 mg one p.o. twice a day 3. Esbruet three tablets p.o. t.i.d. 4. Zofran p.r.n. 5. Antivert p.r.n. 6. Symbicort one to two puffs twice a day 7. Nebs treatment q.i.d. 8. Citalopram 40 mg p.o. daily 9. Hydrocodone two tablets q.6 p.r.n. for pain 10. Toradol 10 mg p.o. q.i.d. 11. Tamsulosin (Flomax) 0.4 mg p.o. daily ALLERGIES: PENICILLIN PAST MEDICAL/SURGICAL HISTORY: 1. Pulmonary fibrosis for a number of years being followed by [facility] and also by pulmonary Andrea in [place], Dr. Machado. 2. Hysterectomy 3. Osteoarthritis SOCIAL/PERSONAL/FAMILY HISTORY: The patient is a former smoker, quit one year ago. No alcohol. No drug abuse. PHYSICAL EXAMINATION: GENERAL: The patient is oriented to time, place and person. VITAL SIGNS: Temperature 98.1, pulse 84, respiratory rate 18, BP 134/82, pulse ox 94%. HEENT: Head normocephalic, atraumatic. Eyes: Extraocular muscles are intact. Pupils are equal, round and reactive to light and accommodation. Ears: No lesions. Nose appeared normal. Throat: No exudate or erythema. NECK: Supple. No JVP, no carotid bruit. No lymphadenopathy or thyromegaly. LUNGS: Decreased breath sounds bilaterally with normal percussion note. Clear to auscultation. Percussion note normal. Chest symmetrical. HEART: S1, S2, no S3. No murmurs. No cyanosis. Mild clubbing noted. No ascites. Pulses: Dorsalis pedis and posterior tibial pulses +1 to +2 both sides. ABDOMEN: Soft. Nontender. Bowel sounds active. No CVA tenderness. No mass felt. EXTREMITIES: No edema. Full range of motion of all extremities, equal. NEUROLOGIC: No focal deficit. Cranial nerves II through XII are grossly intact. No headache, no double vision or headache. SKIN: Not dry. Intact. Turgor - normal. LYMPHATIC: No palpable lymph nodes/no lymphedema. MUSCULOSKELETAL: Normal joints with no swelling. Muscle tone is normal. LABS: Hemoglobin 10.9, hematocrit 35, WBC 17,000, normal differential. Creatinine 0.7 , BUN 23, potassium 4.4, glucose 126, BNP 70. ASSESSMENT: 1. Chest pain, atypical; do not think it is related to coronary artery disease. The patient does not have coronary spasm. The patient's rhythm strips examined, sinus rhythm, rate of 80 to 90/min. EKG unchanged, sinus rhythm, LVH, pulmonary disease pattern. 2. Idiopathic pulmonary fibrosis. 3. Anemia. 4. Leukocytosis likely from steroids. 5. Depression. PLAN: 1. The patient had an echocardiogram done which showed normal LV contractility. Valves were normal. 2. Will add Cardizem 60 mg twice a day, calcium channel kris may help. 3. Pulmonary hypertension. 4. The patient may need Dobutamine stress echo. Will discuss with attending. 5. Continuous flow oxygen. The patient advised to do that. 6. Pulmonary rehabilitation if Dobutamine stress echo is negative. 7. Coated aspirin one a day. 8. Agree with serial cardiac markers and serial EKGs. The patient's condition is stable and will follow. The patient is strongly advised to followup with Dr. Machado at [facility] for pulmonary transplant. The patient is an ideal candidate. Thank you very much for the referral. Will follow. KAYLA
[2016-09-30] MEDS: DILAUDID 1 MG/ML SYRINGE IVP PRN ×2 (09:20→15:46)
--- NOTE | 2016-09-30 09:20 | PN ---
DATE OF SERVICE: 09/28/16 CONSULT FOLLOWUP SUBJECTIVE: 61-year-old white female hospitalized with pulmonary fibrosis with pneumonia. The patient had acute respiratory failure on chronic respiratory failure. The patient has been followed by Dr. Machado in [place] along with [facility] for possibility of lung transplant. The patient was seen on consultation because of chest pain. The patient does not have any chest pain anymore. The chest pain was at rest, had so far no evidence of any acute myocardial event. The patient' s EKGs, rhythm strips and cardiac markers are negative for any acute myocardial event. REVIEW OF SYSTEMS: CONSTITUTIONAL: No night sweats. No fatigue, malaise, lethargy. No fever or chills. HEENT: Eyes: No visual changes. No eye pain. No eye discharge. ENT: No runny nose. No epistaxis. No sinus pain. No sore throat. No odynophagia. No ear pain. No congestion. RESPIRATORY: No cough, no congestion. No hemoptysis. CARDIOVASCULAR: The patient is up walking in the room, no arrhythmias of any significance noted. Shortness of breath on minimal exertion. No angina symptoms. No CHF symptoms. No atypical chest pain for CAD. No palpitations. GASTROINTESTINAL: No abdominal pain. No nausea or vomiting. No diarrhea or constipation. No hematemesis. No hematochezia. GENITOURINARY: No urgency. No frequency. No dysuria. No hematuria. No obstructive symptoms. No discharge. No pain. No significant abnormal bleeding. MUSCULOSKELETAL: No musculoskeletal pain. No joint swelling. No arthritis. NEUROLOGICAL: No headache. No neck pain. No syncope. No seizures. No dizziness. PSYCHIATRIC: Not anxious. No depression. No suicidal thoughts. No homicidal thoughts. SKIN: No rash. No lesions. No wounds. ENDOCRINE: No unexplained weight loss. No weight gain. HEMATOLOGIC/LYMPHATIC: No anemia. No purpura. No petechiae. No prolonged or excessive bleeding. No palpable lymph nodes. PHYSICAL EXAMINATION: GENERAL: The patient is oriented to time, place and person. VITAL SIGNS: Temperature 97.5, pulse 74, respiratory rate 20, BP 133/67, pulse ox 94%. HEENT: Head normocephalic, atraumatic. Eyes: Extraocular muscles are intact. Pupils are equal, round and reactive to light and accommodation. Ears: No lesions. Nose appeared normal. Throat: No exudate or erythema. NECK: Supple. No JVD, no carotid bruit. No lymphadenopathy or thyromegaly. LUNGS: Decreased breath sounds with mild wheeze. Percussion note normal. Chest symmetrical. HEART: S1, S2, no S3. No murmurs. No cyanosis or clubbing. No ascites. Pulses: Dorsalis pedis and posterior tibial pulses +1 to +2 both sides. ABDOMEN: Soft. Nontender. Bowel sounds active. No CVA tenderness. No mass felt. EXTREMITIES: No edema. Full range of motion of all extremities, equal. NEUROLOGIC: No focal deficit. Cranial nerves II through XII are grossly intact. No headache, no double vision or headache. SKIN: Not dry. Intact. Turgor - normal. LYMPHATIC: No palpable lymph nodes/no lymphedema. MUSCULOSKELETAL: Normal joints with no swelling. Muscle tone is normal. LABS: Hemoglobin 10.9, hematocrit 34, WBC 16,000, normal differential. Creatinine 0.7 , BUN 26, potassium 4.7. Cardiac markers negative. ASSESSMENT: 1. CHEST PAIN SEEMS TO BE NONCARDIAC. NO EVIDENCE OF NC, ISCHEMIA OR ACUTE MYOCARDIAL EVENT. THE PATIENT'S RHYTHM STRIPS, EKG, CARDIAC MARKERS ARE ALL NEGATIVE. 2. IDIOPATHIC PULMONARY FIBROSIS. 3. HISTORY OF PNEUMONIA. PLAN: 1. Continue the same management with monitoring. 2. Will do Dobutamine stress echo Sestamibi on Friday. CONDITION: STABLE MTDD
[2016-09-30] MEDS: PIRFENIDONE PO SCH ×3 (09:24→17:21)
[2016-09-30] MEDS: CARDIZEM PO SCH (09:24)
[2016-09-30] MEDS: SYMBICORT 80-4.5 MCG INHALER IH SCH (09:25)
[2016-09-30] MEDS: LEVAQUIN 750 MG in PREMIX 150 ML D5W 1 BAG IV SCH (09:26)
--- NOTE | 2016-09-30 09:44 | CONS ---
DATE OF SERVICE: 09/29/16 CONSULT FOLLOWUP SUBJECTIVE: 61-year-old white female hospitalized with pneumonia with pulmonary fibrosis. The patient's condition has improved. The infection seems to be subsiding. The patient doesn't have any chest pain. I was consulted for chest pain evaluation. The patient is up and about, somewhat anxious. REVIEW OF SYSTEMS: CONSTITUTIONAL: No night sweats. No fatigue, malaise, lethargy. No fever or chills. HEENT: Eyes: No visual changes. No eye pain. No eye discharge. ENT: No runny nose. No epistaxis. No sinus pain. No sore throat. No odynophagia. No ear pain. No congestion. RESPIRATORY: No cough, no congestion. No hemoptysis. CARDIOVASCULAR: No angina symptoms. No CHF symptoms. No atypical chest pain for CAD. No palpitations. Shortness of breath on minimal exertion. The patient is up and about in the room and able to do her activity of daily living. No PND , no orthopnea. No exertional chest discomfort. GASTROINTESTINAL: No abdominal pain. No nausea or vomiting. No diarrhea or constipation. No hematemesis. No hematochezia. GENITOURINARY: No urgency. No frequency. No dysuria. No hematuria. No obstructive symptoms. No discharge. No pain. No significant abnormal bleeding. MUSCULOSKELETAL: No musculoskeletal pain. No joint swelling. No arthritis. NEUROLOGICAL: No headache. No neck pain. No syncope. No seizures. No dizziness. PSYCHIATRIC: Not anxious. No depression. No suicidal thoughts. No homicidal thoughts. SKIN: No rash. No lesions. No wounds. ENDOCRINE: No unexplained weight loss. No weight gain. HEMATOLOGIC/LYMPHATIC: No anemia. No purpura. No petechiae. No prolonged or excessive bleeding. No palpable lymph nodes. PHYSICAL EXAMINATION: GENERAL: The patient is oriented to time, place and person. VITAL SIGNS: Temperature 98.1, pulse 90, respiratory rate 20, BP 139/73, pulse ox 91% on 3L. HEENT: Head normocephalic, atraumatic. Eyes: Extraocular muscles are intact. Pupils are equal, round and reactive to light and accommodation. Ears: No lesions. Nose appeared normal. Throat: No exudate or erythema. NECK: Supple. No JVP, no carotid bruit. No lymphadenopathy or thyromegaly. LUNGS: Decreased breath sounds with mild wheeze. Percussion note normal. Chest symmetrical. HEART: S1, S2, no S3. No murmurs. No cyanosis or clubbing. No ascites. Pulses: Dorsalis pedis and posterior tibial pulses +1 to +2 both sides. ABDOMEN: Soft. Nontender. Bowel sounds active. No CVA tenderness. No mass felt. EXTREMITIES: No edema. Full range of motion of all extremities, equal. NEUROLOGIC: No focal deficit. Cranial nerves II through XII are grossly intact. No headache, no double vision or headache. SKIN: Not dry. Intact. Turgor - normal. LYMPHATIC: No palpable lymph nodes/no lymphedema. MUSCULOSKELETAL: Normal joints with no swelling. Muscle tone is normal. LABS: Hemoglobin 10.8, hematocrit 34, WBC 21,000, normal differential. Creatinine 0.7 , BUN 22, potassium 4.1. T4 and TSH normal. ASSESSMENT: 1. CHEST PAIN, ETIOLOGY UNKNOWN 2. IDIOPATHIC PULMONARY FIBROSIS AND PATIENT IS TOLERATING CARDIZEM 60 MG TWICE A DAY VERY WELL. THE PATIENT WILL HAVE DOBUTAMINE STRESS ECHO SESTAMBI IN THE MORNING. PLAN/RECOMMENDATIONS: CAD discussed in detail with ASHD risk factors. Pulmonary rehabilitation advised. The patient is strongly advised to followup at [facility] and Dr. Machado in [place]. CONDITION: Stable. MTDD
--- NOTE | 2016-09-30 10:22 | PCM.PROG ---
Attending Provider: ATTENDING PROVIDER: Dr. EVA DIOR DATE OF SERVICE: 09/30/16 SUBJECTIVE: This 61 year old WHITE/ F was hospitalized 09/22/16. The patient is admitted with pneumonia and pulmonary fibrosis. Her condition has improved. She had chest pain which was equivocal of coronary insufficiency with chest pain going through to the jaw at rest. No evidence of any acute myocardial event. Cardiac markers negative. She is up and about in the room with no symptoms of coronary insufficiency. She was evaluated by [facility] for lung transplant. Dr. Machado is her pulmonary M.D. REVIEW OF SYSTEMS: CONSTITUTIONAL: No night sweats. No fatigue, malaise, lethargy. No fever or chills. HEENT: Eyes: No visual changes. No eye pain. No eye discharge. ENT: No runny nose. No epistaxis. No sinus pain. No odynophagia. No congestion. RESPIRATORY: No cough, no congestion. No hemoptysis. CARDIOVASCULAR: No angina symptoms. No CHF symptoms. No atypical chest pain for CAD. No palpitations. Shortness of breath on minimal exertion. GASTROINTESTINAL: No abdominal pain. No nausea or vomiting. No diarrhea or constipation. No hematemesis. No hematochezia. GENITOURINARY: No urgency. No frequency. No dysuria. No hematuria. No obstructive symptoms. No discharge. No pain. No significant abnormal bleeding. MUSCULOSKELETAL: No musculoskeletal pain; no joint swelling. NEUROLOGICAL: Awake, alert, oriented to time, place and person. No headache. No neck pain. No syncope. No seizures. No dizziness. PSYCHIATRIC: Not anxious. No depression. No suicidal thoughts. No homicidal thoughts. SKIN: No rash. No lesions. No wounds. ENDOCRINE: No unexplained weight loss. No weight gain. HEMATOLOGIC/LYMPHATIC: No anemia. No purpura. No petechiae. No prolonged or excessive bleeding. No palpable lymph nodes. PHYSICAL EXAMINATION: GENERAL: The patient is awake, alert and oriented, lying/sitting in bed in no distress. VITAL SIGNS: Temperature 98 F, Pulse 76, Respiratory Rate 20, BP 94/54, Pulse Ox 92% HEENT: Head normocephalic, atraumatic. Eyes: Extraocular muscles are intact. Pupils are equal, round and reactive to light and accommodation. Ears: No lesions. Nose appeared normal. Throat: No exudate or erythema. NECK: Supple. No JVD, no carotid bruit. No lymphadenopathy or thyromegaly. LUNGS: Decreased breath sounds. Clear to auscultation. Percussion note normal. Chest symmetrical. HEART: S1, S2, no S3. No murmurs. No cyanosis or clubbing. No ascites. Pulses: Dorsalis pedis and posterior tibial pulses +1 to +2 both sides. ABDOMEN: Soft. Non-tender. Bowel sounds active. No CVA tenderness. No mass felt. EXTREMITIES: No edema. Full range of motion of all extremities, equal. NEUROLOGIC: No focal deficit. Cranial nerves II through XII are grossly intact. No headache, no double vision or headache. SKIN: Not dry. Intact. Turgor-normal. LYMPHATIC: No palpable lymph nodes/no lymphedema. MUSCULOSKELETAL: Normal joints with no swelling. Muscle tone is normal. LAB REVIEW: 09/30/16 06:02 09/30/16 06:02 09/30/16 06:02: WBC 16.46 H, RBC 4.22, Hgb 10.7 L, Hct 34.3 L, MCV 81.3, MCH 25.4 L, MCHC 31.2 L, RDW Coeff of Sil 16.9 H, Plt Count 352, Neutrophils % ( Manual) 57.0, Lymphocytes % (Manual) 40.0, Monocytes % (Manual) 3.0, Sodium 140 , Potassium 3.9, Chloride 101, Carbon Dioxide 29, Anion Gap 13.9, BUN 24 H, Creatinine 0.79, Estimated GFR (MDRD) 74.00, BUN/Creatinine Ratio 30.37, Glucose 106, Calcium 9.0, Total Bilirubin 0.16, AST 19, ALT 35, Alkaline Phosphatase 57, Total Protein 6.1, Albumin 3.0 L, Globulin 3.1, Albumin/ Globulin Ratio 0.97, Procalcitonin < 0.05 09/29/16 07:25: Neutrophils % (Manual) 70.0, Band Neutrophils % 4.0, Lymphocytes % (Manual) 12.0, Monocytes % (Manual) 6.0, Metamyelocytes % 3.0 H, Reactive Lymphocytes 5.0 ASSESSMENT: 1. Chest pain seems to be noncardiac. She is going to have a Dobutamine stress echo Sestamibi. 2. Idiopathic pulmonary fibrosis. PLAN: 1. Dobutamine stress echo Sestamibi today. Plan and coordination of the patient's care discussed in the presence of Coil Spring Assembler and nurse. CONDITION: STABLE SCRIBED BY: GIORGIO PENA Training Instructor scribed while in presence of service performed by Dr. EVA DIOR on 09/30/16 ([id number])
--- NOTE | 2016-09-30 10:25 | CONS ---
CONSULTATION FOLLOWUP DATE OF SERVICE: 09/30/16 SUBJECTIVE: This 61 year old WHITE/ F was hospitalized 09/22/16. The patient is admitted with pneumonia and pulmonary fibrosis. Her condition has improved. She had chest pain which was equivocal of coronary insufficiency with chest pain going through to the jaw at rest. No evidence of any acute myocardial event. Cardiac markers negative. She is up and about in the room with no symptoms of coronary insufficiency. She was evaluated by [facility] for lung transplant. Dr. Machado is her pulmonary M.D. REVIEW OF SYSTEMS: CONSTITUTIONAL: No night sweats. No fatigue, malaise, lethargy. No fever or chills. HEENT: Eyes: No visual changes. No eye pain. No eye discharge. ENT: No runny nose. No epistaxis. No sinus pain. No odynophagia. No congestion. RESPIRATORY: No cough, no congestion. No hemoptysis. CARDIOVASCULAR: No angina symptoms. No CHF symptoms. No atypical chest pain for CAD. No palpitations. Shortness of breath on minimal exertion. GASTROINTESTINAL: No abdominal pain. No nausea or vomiting. No diarrhea or constipation. No hematemesis. No hematochezia. GENITOURINARY: No urgency. No frequency. No dysuria. No hematuria. No obstructive symptoms. No discharge. No pain. No significant abnormal bleeding. MUSCULOSKELETAL: No musculoskeletal pain; no joint swelling. NEUROLOGICAL: Awake, alert, oriented to time, place and person. No headache. No neck pain. No syncope. No seizures. No dizziness. PSYCHIATRIC: Not anxious. No depression. No suicidal thoughts. No homicidal thoughts. SKIN: No rash. No lesions. No wounds. ENDOCRINE: No unexplained weight loss. No weight gain. HEMATOLOGIC/LYMPHATIC: No anemia. No purpura. No petechiae. No prolonged or excessive bleeding. No palpable lymph nodes. PHYSICAL EXAMINATION: GENERAL: The patient is awake, alert and oriented, lying/sitting in bed in no distress. VITAL SIGNS: Temperature 98 F, Pulse 76, Respiratory Rate 20, BP 94/54, Pulse Ox 92% HEENT: Head normocephalic, atraumatic. Eyes: Extraocular muscles are intact. Pupils are equal, round and reactive to light and accommodation. Ears: No lesions. Nose appeared normal. Throat: No exudate or erythema. NECK: Supple. No JVD, no carotid bruit. No lymphadenopathy or thyromegaly. LUNGS: Decreased breath sounds. Clear to auscultation. Percussion note normal. Chest symmetrical. HEART: S1, S2, no S3. No murmurs. No cyanosis or clubbing. No ascites. Pulses: Dorsalis pedis and posterior tibial pulses +1 to +2 both sides. ABDOMEN: Soft. Non-tender. Bowel sounds active. No CVA tenderness. No mass felt. EXTREMITIES: No edema. Full range of motion of all extremities, equal. NEUROLOGIC: No focal deficit. Cranial nerves II through XII are grossly intact. No headache, no double vision or headache. SKIN: Not dry. Intact. Turgor-normal. LYMPHATIC: No palpable lymph nodes/no lymphedema. MUSCULOSKELETAL: Normal joints with no swelling. Muscle tone is normal. LAB REVIEW: 09/30/16 06:02 09/30/16 06:02 09/30/16 06:02: WBC 16.46 H, RBC 4.22, Hgb 10.7 L, Hct 34.3 L, MCV 81.3, MCH 25.4 L, MCHC 31.2 L, RDW Coeff of Sil 16.9 H, Plt Count 352, Neutrophils % ( Manual) 57.0, Lymphocytes % (Manual) 40.0, Monocytes % (Manual) 3.0, Sodium 140 , Potassium 3.9, Chloride 101, Carbon Dioxide 29, Anion Gap 13.9, BUN 24 H, Creatinine 0.79, Estimated GFR (MDRD) 74.00, BUN/Creatinine Ratio 30.37, Glucose 106, Calcium 9.0, Total Bilirubin 0.16, AST 19, ALT 35, Alkaline Phosphatase 57, Total Protein 6.1, Albumin 3.0 L, Globulin 3.1, Albumin/ Globulin Ratio 0.97, Procalcitonin < 0.05 09/29/16 07:25: Neutrophils % (Manual) 70.0, Band Neutrophils % 4.0, Lymphocytes % (Manual) 12.0, Monocytes % (Manual) 6.0, Metamyelocytes % 3.0 H, Reactive Lymphocytes 5.0 ASSESSMENT: 1. Chest pain seems to be noncardiac. She is going to have a Dobutamine stress echo Sestamibi. 2. Idiopathic pulmonary fibrosis. PLAN: 1. Dobutamine stress echo Sestamibi today. ADDENDUM: The patient had Dobutamine Stress echo done. The patient's Dobutamine stress was negative for ischemia. The Sestamibi report came back negative. I discussed the case with the attending physician. The patient is stable enough to be discharged. Cardiovascular status is stable. The patient is strongly advised to followup at [facility] and her pulmonary physician in [place] along with primary care. Condition at time of discharge is stable. Plan and coordination of the patient's care discussed in the presence of Machine Coil Assembler and nurse. CONDITION: STABLE SCRIBED BY: GIORGIO PENA Senior Electrical Controls Engineer scribed while in presence of service performed by Dr. Amezcua on 09/30/16 ([id number]) SHED
--- NOTE | 2016-09-30 11:15 | NM ---
Cardiac Stress Test HISTORY: Chest pain. COMPARISON: None of this type. TECHNIQUE: Resting: The patient was injected with 4.1 millicuries of the thallium 201 chloride intravenously a fter which a "resting" SPECT study of the heart was performed. Stress: The patient was stressed pharmacologically with dobutamine and at the appropriate time inje cted with 24.9 millicuries of 99m technetium Sestamibi (Cardiolite) after which a "stress" SPECT vel dy of the heart was performed. Gated images of the heart were also obtained to assess wall motion an d calculate ejection fraction. For details of the stress protocol employed, reference is made to th e separate report of the performing physician. FINDINGS: The stress perfusion images demonstrate a generally uniform distribution of activity in t he left ventricular myocardium. The resting perfusion images demonstrate no evidence of significant redistribution/ischemia. The left ventricular ejection fraction (LVEF) is 62%. The left ventricular wall motion was not specifically evaluated. IMPRESSION: 1. Left ventricular myocardial perfusion is within normal limits. 2. The left ventricular ejection fraction (LVEF) is 62%. 3. The left ventricular wall motion was not specifically evaluated.
--- NOTE | 2016-09-30 15:11 | PN ---
DATE OF VISIT: 09/26/16 The patient, just before supper, took a shower for about 15 minutes. The patient completed the shower and soon experienced sharp anterior chest pain. The pain has subsided by the time I saw her. EKG showed no acute changes and the cardiac enzymes remained normal. She had this pain also previously and was seen by Dr. Amezcua, Judicial Registrar. LUNGS: Her lungs still has rales, but less Velcro in type rales than before on my first examination. HEART: Audible and regular with good tones. GENERAL APPEARANCE: Good. The patient is still using 5 Liters of nasal oxygen. Her oxygen saturation is 95 to 97. VITAL SIGNS: At 6 p.m. showed a temperature of 97.5, pulse 85, blood pressure 152/91, respiratory rate 21, oxygen saturation 96 with 5 Liters. The patient has an appointment with Dr. Machado this coming Friday. Dr. Amezcua had done an echocardiogram on her and he told verbally that the echocardiogram looks normal. The echocardiogram has an ejection fraction of 59% . The valves are normal. There is some enlargement of the left atrial cavity and right ventricle. Left ventricular cavity enlargement maybe secondary to the pulmonary condition. Her sister was in the room and I asked her if she had heard from the training and development coordinator and she told me that she did not. She left a message earlier when she called. I again urged her to get in touch with the training and development coordinator. I did tell that the patient, as well as her sister, Ilene, that Dr. Machado told me that she was a candidate for transplant. Her Hepatitis C, according to the patient and his sister, was a false negative according to [facility]. [facility]
--- NOTE | 2016-09-30 15:18 | PN ---
DATE OF VISIT: 09/27/16 The patient was alert and feeling better. LUNGS: The lungs has less rales and less Velcro type rales. HEART: Normal sinus rhythm. ABDOMEN: Unremarkable. I told the patient that the lungs sound better than the first time I had seen her. The patient later had chest pain again and Darlene, a nurse at the hospital , did call me with regards to the chest pain and I did tell her to proceed with the EKG and cardiac enzymes and request a consultation with Dr. Amezcua. He had already done an echocardiogram and I do not know whether he was asked by Dr. Puildo as a pulmonary sap portal consultant. Again, whether he was already on board that he should reevaluate the patient and see if indeed the pain is cardiac or noncardiac. If the pain is decidedly noncardiac, this patient probably could go home after a repeat chest x-ray or CT sometime early next week. KAYLA
--- NOTE | 2016-09-30 15:33 | PN ---
DATE OF VISIT: 09/28/16 The patient, today, is alert and claims to be feeling well. I asked her if Dr. Amezcua had seen her yesterday and she said yes and then today Dr. Amezcua came by, but she was in the bathroom. She did not have any chest pain and again claimed that she feels good. She is able to breath better. She keeps repeating that the Xanax had helped her very much. She told me that she is back on the transplant program and has an appointment in [place] October the . She has an upcoming appointment with Dr. Machado, Sheetfed Press Operator in the [facility] area this coming Friday10/02/2016. She would like to go home and I told her that I will consider that tomorrow after discussing with Dr. Amezcua. As far as I am concerned with the pulmonary problems that she probably can go home with continued antibiotics. I don't know about the status of the cardiac condition with repeated chest pain. The repeated EKG showed no remarkable abnormalities and the cardiac enzymes remained normal. The CBC today showed a WBC of 16,110, hemoglobin 10.9, hematocrit 34.5, immature granulocytes 5.9, elevated. TSH just below the lowest normal 0.272. Free T4 0.59. Anion gap slightly higher at 17.7. VITAL SIGNS: This morning with a temperature 97.8, pulse 89, blood pressure 126 /68, respiratory rate 18, oxygen saturation 96 at 4 Liters. LUNGS: Still has some rales and the Velcro type rales is less. We will obtain a Procalcitonin in the morning. We will see if the immature cells will be increasing. If that would be the case then I would repeat the CT of the chest without contrast. Methylprednisolone 40 mg every 8 hours is discontinued. This patient will be given Prednisone 20 mg twice a day and will be decreased slowly. Stop the Hydrocodone with Tylenol since the patient has Dilaudid prn. The Toradol also will be discontinued. MTDD
[2016-09-30 17:33] VITALS: BP 100/57; TEMP 97.5
--- NOTE | 2016-10-01 08:34 | PN ---
DATE OF SERVICE: 09/30/16 SUBJECTIVE: The patient today is alert, responsive and oriented. Vital signs at 5:32 p.m. today shows a temperature of 97.5, pulse 91, BP 150/57, respiratory rate 20, oxygen saturation 91% on room air. The patient had Dobutamine stress and did experience chest pain with the Dobutamine. A Sestamibi was ordered and no results at this time. Lungs still have Velcro rales on both sides. Heart is audible with good tones. The patient was interested in going home. I did tell her that we would wait for the results of the Sestamib before finalizing her discharge. I had discussed the case with Dr. Machado, the motorcycle tester and he will be seeing her in the next few days after her discharge. She also has an appointment with [facility]. The patient is back on the program for possible lung transplant. KAYLA
--- NOTE | 2016-10-01 08:43 | PN ---
DATE OF VISIT: 09/29/16 SUBJECTIVE: The patient today is alert, no significant distress. This patient was advised that Sestamibi is pending with Dr. Amezcua and that will be done Friday. If all are negative during testing for cardiac problems, she will then be discharged that day. She still has nasal oxygen at 4L/min. The patient now is scheduled to go to [facility] on 10/14 for further followup. Baseline studies prior to lung transplantation. She is scheduled with Dr. Machado this coming Friday and I urged her to keep that appointment. OBJECTIVE: V/S ON 09/29/16: Temperature 98, pulse 70, BP 124/66, respiratory rate 18, oxygen saturation 97% on 4L. PLAN: The patient does repeatedly tell me that the Xanax helps with anxiety when she gets short of breath and that medication helped her so much that she would like to continue this. I will write enough medication for about one week and Dr. Machado can continue it or the provider that she goes to. The patient does go to the clinic. She will be given medication to bridge her from discharge to the [facility] appointment on October 14. She will be prescribed Levaquin for about four days and it will be up to Dr. Machado to continue the medication and also with Dr. Pulido at the clinic. KAYLA
--- NOTE | 2016-10-02 12:24 | ECHOSTRESS ---
Date of Exam: 09/30/16 Ordering Physician: HOSPITALIST--OVI Reason for Echo: CHEST PAIN, DOBUTAMINE STRESS SESTAMIBI--NO ISCHEMIA M-Mode Normal Adult Results LV Dimensions Normal Adult Results AoV Opening excursions >1.6 LVEDD-base- 3.5-5.8 Ao root dimensions 2.0-3.7 LVESD-base- 3.1-4.6 L. Atrium dimensions 1.9-3.8 Post. Wall thickness 0.8-1.1 IV septum (thickness) 0.7-1.2 Post. Wall excursion 0.72-1.3 Septal motion Systolic motion R. Ventricular cavity 1.5-2.0 LVEF 60% Paradoxical septal wall motion 2-D: NORMAL LEFT VENTRICULAR CONTRACTILITY--RESTING AND WITH DOBUTAMINE INFUSION M-MODE: MV: AV: TV: PV: CHAMBER SIZE: WALL MOTION: NORMAL LEFT VENTRICULAR CONTRACTILITY--RESTING AND WITH DOBUTAMINE INFUSION PERICARDIUM: INTERPRETATION: 1. NORMAL LEFT VENTRICULAR CONTRACTILITY--RESTING AND WITH DOBUTAMINE INFUSION SESTAMIBI TO FOLLOW MTDD
--- NOTE | 2016-10-02 12:59 | DOBSTECHST ---
Ordering Physician: HOSPITALIST--EVA DIOR Date of Test: 09/30/16 Reason for Examination: CHEST PAIN, Current Medications: XANAX, DUONEB, SYMBICORT, CARDIZEM, CELEXA, FLOMAX Height: 65" Weight: 158 LBS Target Heart Rate: 134/158 ST Segment Stage Time HR BPM BP mmhg Rhythm +/- Up Down Comments/Symptoms Control Sitting 67 136/76 SR X NONE Dobutamine 250mg/D5W 5cmg/KG/mn 10cmg/KG/mn 3:12 102 142/86 SR X CHEST PAIN 15cmg/KG/mn 20cmg/KG/mn 25cmg/KG/mn 30cmg/KG/mn 35cmg/KG/mn 40cmg/KG/mn Time: 3" HR B/P Time: 6" HR B/P Time: HR B/P Recovery 82 140/90 Recovery 76 Recovery Total Time: 3:12 Maximum Heart Rate Reached: 102 __ Interpretation: 1. NO EVIDENCE OF ISCHEMIA BY ST-T WAVE CHANGES FROM HEART RATE 67/BPM TO 102/ BPM WITH DOBUTAMINE INFUSION 2. CHEST PAIN WITH DOBUTAMINE INFUSION NORMAL LEFT VENTRICULAR CONTRACTILITY RESTING AND WITH DOBUTAMINE INFUSION SESTAMIBI TO FOLLOW MTDD
--- NOTE | 2016-10-17 10:19 | DS ---
PATIENT IDENTIFICATION: This is a patient of Dr. Carvajal but was transferred to [place] when he left town. I initially saw her 09/24/16. This is a 62-year-old female , who is noted to have interstitial pulmonary fibrosis and somewhat progressive. It had been more than 2 years since the diagnosis. This patient was seen at [facility] and was initially placed on possible lung transplant and did not undergo the complete baseline workup. The patient was seen in the emergency room on the day of admission because of increasing shortness of breath in the last two days. She was subsequently admitted. Initial chest x-ray showed congestive heart failure with pulmonary venous congestion and minimal central pulmonary edema; chronic interstitial density consistent with pulmonary fibrosis. The diagnosis however by the attending physician was COPD with acute exacerbation and pneumonia. The patient was given beta-agonist inhalers as well as Solu-Medrol. When I saw her on 09/24/16, the patient had Velcro type rales in both lung sloan. She also had rales anteriorly. This patient was given Levaquin 500 mg daily and was increased to 750 daily after discussing with Dr. Machado. The patient, while in the hospital was on Zofran 4 mg intravenously as needed, Albuterol Sulfate 0.083 /360 per nebulizer. Symbicort also was prescribed at 80/4.5 two puffs twice a day. She was continued on Pirfenidone three tablets p.o. t.i.d. as well as other medications. The patient also did receive Ceftriaxone 1 gm daily. 750 mg Levaquin begun on 09/25/16. The patient had recurrent chest pain and so cardiology was requested and the patient was scheduled for Dobutamine Stress. She was seen by Dr. Amezcua and ordered some medication. The patient continued to remain dyspneic and had repeat x-ray on 09/24/16 showing stable appearance of the chest, pneumonia suspected. CT chest without contrast showed bilateral ground glass opacities new which could represent pneumonia or edema. Stable interstitial pulmonary fibrosis. CT angiogram done on the same day showed no evidence of of pulmonary embolus; otherwise, the same findings. The patient continued to remain stable. Doppler studies done also 09/25/16, both lower extremities were negative for DVT. The patient's arterial blood gases on admission in the emergency room showed a p02 39, pc02 45, pH 7.442, oxygen saturation 76, FI02 28. Cardiac enzymes remained normal. The initial BNP was 169 and was repeated on 09/25/16 and is now normal at 70. The patient was continued on previous medications and then recurrent chest pain warranted a consultation with associate professor of criminal justice, Dr. Amezcua, who did perform Dobutamine Stress. This patient, during Dobutamine injection, did experience chest pain. The Sestamibi was not reported on 09/30/16. The patient was then advised that as soon as I have the report on the Sestamibi that she would either be discharged or transferred to another facility if positive. The patient, on the day of discharge, was alert, ambulatory with nasal oxygen. Sestamibi was negative. I did talk to the consulting associate professor of criminal justice whether she is okay to go home and he felt that the patient can very well be discharged. This patient has an appointment with Dr. Machado this coming Friday and appointment at [facility] on 10/14/16. The patient's procalcitonin on was less than 0.05. Electrolytes were normal. CBC moderate anemia, WBC 16, 460. The patient on discharge 10/01/16 was alert, feeling better, still with nasal oxygen at 4L. She claimed that Alprazolam keeps her calm when she experiences increasing shortness of breath so she was prescribed Alprazolam 1/2 mg to be taken every 8 hours as needed. She also was prescribed Levofloxacin 750 mg daily. She is to resume the previous medications that she has consisting of: Albuterol Sulfate, aspirin with caffeine (Bc powder), Symbicort 80/4.5 mcg two puffs twice a day, Citalopram 40 mg daily, Hydrocodone with Tylenol 5/325 one to two tablets every six hours p.r.n. The patient was prescribed Ketorolac 10 mg to be taken four times a day as needed. Continue the Pirfenidone three tablets three times a day and the other medications for nausea. This patient was encouraged to keep her appointment with Dr. Machado this coming Friday and keep the appointment in [place]. The patient's instructions consisted of the prescription Levaquin 750 mg daily and Xanax 0.5 mg t.i.d. as needed for anxiety, the other medication. No Ceftriaxone as indicated above. FINAL DIAGNOSES: 1. INTERSTITIAL PULMONARY FIBROSIS, WITH INCREASING SEVERITY. 2. RESPIRATORY FAILURE SECONDARY TO #1. 3. POSSIBLE BILATERAL PNEUMONITIS SUPERIMPOSED. 4. ANXIETY. PROGNOSIS: Very poor. MTDD
== END 2016-09-30 19:15 | disposition home or self-care (01) | DRG 196 ==
LOC: ED 12:33 → MEDSURG A 15:45 → SCU 09-25 14:21 → MEDSURG B 09-29 07:27
PROVIDERS: ADMIT Emergency Medicine; ATTEND Emergency Medicine
DX: J84.9 Interstitial pulmonary disease, unspecified (principal); J96.90 Respiratory failure, unspecified, unspecified whether with hypoxia or hypercapnia; J18.9 Pneumonia, unspecified organism; I50.1 Left ventricular failure, unspecified; J44.1 Chronic obstructive pulmonary disease with (acute) exacerbation; J84.112 Idiopathic pulmonary fibrosis; R06.02 Shortness of breath; R09.89 Other specified symptoms and signs involving the circulatory and respiratory systems; I51.7 Cardiomegaly; J40 Bronchitis, not specified as acute or chronic; I10 Essential (primary) hypertension; R60.0 Localized edema; R07.89 Other chest pain; F41.9 Anxiety disorder, unspecified; E78.5 Hyperlipidemia, unspecified; D72.829 Elevated white blood cell count, unspecified; Z87.891 Personal history of nicotine dependence; Z99.81 Dependence on supplemental oxygen; Z79.899 Other long term (current) drug therapy
CPT/HCPCS: 36415; 80053; 80061; 82550; 82803; 83874; 83880; 84145; 84439; 84443; 84484; 85007; 85025; 85379; 87040; 93005; 93010; 94640; 96374; 96375; 97802; 99223; 99233; 99239; 99284; 99285

== ENCOUNTER 2016-10-07 07:57 | Outpatient (RCR) | END 2016-10-09 07:16 | disposition home or self-care (01) | LOC: PUL.REHAB 07:57 | PROVIDERS: ATTEND Internal Medicine Pulmonary Disease | DX: J84.112 Idiopathic pulmonary fibrosis (principal) ==